=== PATIENT | female | born 1970 | race Caucasian/White ===

== ENCOUNTER 2023-12-13 08:05 | Outpatient (AMB) | payer BC, SELFPAY ==
[2023-12-13 08:10] VITALS: PULSE 114; O2SAT 97; BMI 42.9
--- NOTE | 2023-12-13 08:10 | MHC.PC.OV ---
Vital Signs 12/13/23 08:10 12/13/23 08:41 Height 5 ft 3 in Weight 242 lb BMI 42.9 BP 180/98 H Blood Pressure Location Lt radial Lt brachial Position Sitting Sitting Pulse 114 H Pulse Source Pulse Oximeter Pulse Oximetry (%) 97 Oxygen Delivery Method Room Air Intake Visit Reasons: establish care/ requesting pe Clinical Documentation Specialist Required: No Allergies Seasonal Allergies Allergy (Mild, Verified 12/13/23 08:24) Nasal congestion Medication List - Last Reconciled 12/13/23 by Shanta Medina PA-C No Known Home Meds Tobacco use date assessed: 12/13/23 Dental Screening Dental Screen Date: 12/13/23 Did you have a dental visit in the last 12 months?: No Did you have a dental problem in the last 6 months where you did not have access to dental care?: No HPI establish care/ requesting pe HPI Details 53-year-old female coming to the office for the 1st time. Patient is not known to [facility]. Patient was last seen in [address] Alvarenga at this practice. 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 She has also never had a colonoscopy. She did have her mammogram last month at [facility] and is awaiting the results. She tells us she has a history of high blood pressure and does also have anxiety about her blood pressure being taken. She has a history of a scalp cyst that was removed in 2010 however has returned and is now bothersome. [facility] Medical History (Updated 12/13/23 @ 09:21 by Shanta Medina PA-C) Cervical cancer screening Surgical History (Updated 12/13/23 @ 08:25 by Shanta Medina PA-C) S/P right knee arthroscopy Family History (Updated 12/13/23 @ 08:26 by Shanta Medina PA-C) Mother High blood pressure Father High blood pressure Paternal Grandmother Breast cancer Maternal Uncle Prostate cancer Maternal Grandfather Heart attack Social History Housing: House Patient Tobacco Use Status: Never used Tobacco service: No Current occupational status: employed Cognitive needs: No Hearing needs: No Vision needs: No Female Reproductive History Menstrual History of abnormal pap smear: No Questionnaire PHQ-9 Over the last 2 weeks, how often have you been bothered by any of the following problems? 1. Little interest or pleasure in doing things: not at all 2. Feeling down, depressed, or hopeless: not at all 3. Trouble falling or staying asleep, or sleeping too much: not at all 4. Feeling tired or having little energy: not at all 5. Poor appetite or overeating: not at all 6. Feeling bad about yourself - or that you are a failure or have let yourself or your family down: not at all 7. Trouble concentrating on things, such as reading the newspaper or watching television: not at all 8. Moving or speaking so slowly that other people could have noticed. Or the opposite - being so fidgety or restless that you have been moving around a lot more than usual: not at all 9. Thoughts that you would be better off or of hurting yourself in some way: not at all Total score: 0 Depression Screening Interpretation: Negative Depression Screening Done: Yes 58011 - PHQ-9 Billing: Yes Source: Developed by Drs. Victoriano Marcial, Ying Neff, Torres Watkins and colleagues, with an educational lesley from [employer]. Thrive Questionnaire Date Thrive assessed: 12/13/23 I am a: Patient What is your living situation today?: I have a steady place to live Within the past 12 months, did the food you bought not last and you didn't have the money to get more?: Never true Within the past 12 months, did you worry whether your food would run out before you got money to buy more?: Never true Do you have trouble paying for medicines?: No Do you have trouble getting transportation to medical appointments?: No Do you have trouble paying your heating and electricity bill?: No Do you have trouble taking care of your child, family member or friend?: No Do you have trouble with day-to-day activities such as bathing, preparing meals, shopping, managing finances, etc.?: No Are you currently unemployed and looking for a job?: No Are you interested in more education?: I choose not to answer this question Please select the resources that you would like help with: None Currently or been in a relationship where the following occur: No concerns reported THRIVE Score: 0 AUDIT C Alcohol Use Questionnaire (AUDIT-C) 1. How often do you have a drink containing alcohol?: Monthly or less 2. How many drinks containing alcohol do you have on a typical day when you are drinking?: 1 or 2 3. How often do you have six or more drinks on one occasion?: Never Total Score: 1 ANAY-7 AMB Questionnaire ANAY-7 Date ANAY - 7 assessed: 12/13/23 Feeling nervous, anxious, or on edge: 0 = Not at all Not being able to stop or control worryin = Not at all Worrying too much about different things: 0 = Not at all Trouble relaxin = Not at all Being so restless that it is hard to sit still: 0 = Not at all Becoming easily annoyed or irritable: 0 = Not at all Feeling afraid as if something awful might happen: 0 = Not at all Total ANAY-7 score (0-4 normal; 5-9 mild; 10-14 moderate; 15-21 severe): 0 Source: Developed by Drs. Victoriano Marcial, Ying Neff, Torres Watkins and colleagues, with an educational lesley from [employer]. ANAY-7 Assessment Billing ANAY-7 Assessment Tool: ANAY-7 Assessment 55257 Review of Systems Const Denies body aches, Denies fatigue, Denies fever(s), Denies frequent falls, Denies headache(s) and Denies weakness Eyes Reports no additional complaints and Denies change in vision ENT Denies dizziness and Denies headache(s) Card Denies chest pain, Denies leg edema, Denies lightheadedness and Denies dyspnea Resp Denies cough and Denies dyspnea GI Denies abdominal pain, Denies constipation, Denies dyspepsia, Denies diarrhea, Denies nausea and Denies vomiting Denies urinary frequency, Denies dysuria, Denies urinary hesitancy and Denies urinary urgency Musc Denies back pain and Denies myalgias Skin/Breast Reports system reviewed and no additional complaints, except as documented Neuro Denies dizziness, Denies frequent falls, Denies headache(s) and Denies weakness Psych Reports no additional complaints Endo Denies fatigue Physical exam (Primary Care) Vital Signs: Last Vital Signs Pulse 114 H 12/13/23 08:10 BP 180/98 H 12/13/23 08:41 Pulse Ox 97 12/13/23 08:10 Oxygen Delivery Method Room Air 12/13/23 08:10 BMI result Body Mass Index 42.9 BMI Assessment/Plan discussion: High (Zepbound) BMI High, discussed plan: lifestyle, dietary and physical activity Tobacco/Smoking Status: Tobacco use Status Tobacco use date assessed 12/13/23 12/13/23 08:12 Patient Tobacco Use Status Never used Tobacco 12/13/23 08:19 PHQ-9: PHQ-9 Score PHQ-9: Total score 0 12/13/23 09:25 Depression Screening Interpretation: Negative Thrive Assessment: Date of Thrive Assessment Date Thrive assessed 12/13/23 12/13/23 08:12 Currently or been in a relationship where the following occur: No concerns reported Const General: cooperative, healthy appearing, comfortable and no acute distress Orientation/consciousness: patient oriented x3 HENMT Other: Small, mobile, soft, nontender cyst slightly to the left of midline on the scalp Head: Yes normocephalic Ears: hearing grossly normal bilaterally General nose exam: Normal external nose present Eyes General: appearance normal, both eyes and all related structures Conjunctivae: conjunctivae normal Neck Neck: Yes full ROM and Yes no lymphadenopathy Resp Effort & Inspection: normal respiratory effort Auscultation: clear to auscultation bilaterally, no crackles, no rales, no rhonchi and no wheezes Cardio Rate: regular rate Rhythm: regular rhythm Skin General skin exam: no rashes or lesions noted Neuro General: patient oriented x3 Gait exam (Neuro): Normal gait present Extrem General: Yes normal to inspection, Yes full ROM and No edema Psych Affect: normal affect Attitude: cooperative Insight: Good insight present (Psych) Judgement: Good judgement present (Psych) Coding Level of Care Code New Pt Level 4 (19072) Diagnoses Scalp cyst L72.9 Cervical cancer screening Z12.4 Hypertension I10 Morbid obesity with BMI of 40.0-44.9, adult E66.01; Z68.41 Additional Codes ANAY-7 Assessment Billing - ANAY-7 Assessment Tool: ANAY-7 Assessment 59186 ([id number]) PHQ-9 - 45589 - PHQ-9 Billing: Yes ([id number]) Assessment & Plan Assessment & Plan (1) Scalp cyst: Code(s): L72.9 - Follicular cyst of the skin and subcutaneous tissue, unspecified Category: Medical Plan: Patient has recurrent scalp cyst that is bothersome and will grow and shrink randomly. Referral placed for General surgery. (2) Cervical cancer screening: Code(s): Z12.4 - Encounter for screening for malignant neoplasm of cervix Category: Medical Plan: Referral placed for gynecology. No history of abnormal Pap smears. (3) Hypertension: Code(s): I10 - Essential (primary) hypertension Category: Medical Plan: Blood pressure elevated on the exam and patient has a history of hypertension. Advised patient to take blood pressure at home over the next few weeks and follow up in 1 month for repeat blood pressure check. Avoid salt intake and encourage healthy diet and regular exercise. (4) Morbid obesity with BMI of 40.0-44.9, adult: Code(s): E66.01 - Morbid (severe) obesity due to excess calories; Z68.41 - Body mass index [BMI] 40.0-44.9, adult Category: Medical Plan: Healthy diet and regular exercise is encouraged. Discussed the importance of exercise and diet while on Zepbound to avoid regained the weight after discontinuation of the shots. Discussed side effects of this medication. We will trial this medication for 4 weeks advised patient to have liver function testing done 2 weeks into therapy and follow up in 1 month. Plan This note was constructed using voice recognition software. While every effort has been made to ensure accuracy and support representative, still areas may have been included sometimes these areas may affect the content or meeting of the given symptoms. Total time spent caring for the patient today was 30 minutes. This includes time spent before the visit reviewing the chart, time spent during the visit, and time spent after the visit and documentation. Orders: Orders Comprehensive Met. Panel Today Z00.00 - Encounter for general adult medical examination without abnormal findings Complete Blood Count Auto Diff Today Z00.00 - Encounter for general adult medical examination without abnormal findings Free T4 (Free Thyroxine) Today Z00.00 - Encounter for general adult medical examination without abnormal findings Lipid Panel Today Z00.00 - Encounter for general adult medical examination without abnormal findings TSH reflex Free T4 Today Z00.00 - Encounter for general adult medical examination without abnormal findings Vitamin B12 and Folate Today Z00.00 - Encounter for general adult medical examination without abnormal findings Vitamin D 25-OH (D2 and D3) Today Z00.00 - Encounter for general adult medical examination without abnormal findings Referrals General Surgery Referral L72.9 - Follicular cyst of the skin and subcutaneous tissue, unspecified MANAGER INSTALLATION Referral Z12.4 - Encounter for screening for malignant neoplasm of cervix Gastroenterology Referral Z12.11 - Encounter for screening for malignant neoplasm of colon Medications: New tirzepatide (weight loss) (Zepbound) for 4 weeks 2.5 mg (0.5 mL) subcut QWEEK 2 mL 0RF
[2023-12-13 08:41] VITALS: BP 180/98
== END 2023-12-13 08:52 | disposition home or self-care (01) ==
LOC: HO.HMCH 08:06
PROVIDERS: PCP Internal Medicine
DX: I10 Essential (primary) hypertension (principal); L72.9 Follicular cyst of the skin and subcutaneous tissue, unspecified; E66.01 Morbid (severe) obesity due to excess calories; Z68.41 Body mass index [BMI] 40.0-44.9, adult

== ENCOUNTER → 2023-12-13 08:05 | Outpatient (BNVA) | payer BC, SELFPAY | PROVIDERS: PCP Internal Medicine | DX: L72.9 Follicular cyst of the skin and subcutaneous tissue, unspecified (principal); I10 Essential (primary) hypertension; E66.01 Morbid (severe) obesity due to excess calories; Z68.41 Body mass index [BMI] 40.0-44.9, adult | CPT/HCPCS: 96127 ==

== ENCOUNTER 2023-12-26 11:34 | Outpatient (AMB) | payer BC, SELFPAY ==
--- NOTE | 2023-12-26 11:33 | A.OFFVIS_ITS ---
Vital Signs 3 12/26/23 11:42 Height 5 ft 3 in Weight 248 lb 6 oz BMI 44.0 BP 179/99 H Blood Pressure Location Lt brachial Position Sitting Pulse 109 H Intake Visit Reasons: recurrent left sided scalp cyst Intake Note: Patient is seen in office for evaluation of a recurrent cyst of the left scalp. Pt c/o: had a prior cyst on the same spot in 2010 and it was removed at the time by Dr Elliott, recently has increase/decrease, denies discharge, pain, or other concerns ref Dr Clifford Night Supervisor Required: No Accompanied by: Self / Same As Patient Allergies Seasonal Allergies Allergy (Mild, Verified 12/26/23 11:41) Nasal congestion Medication List - Last Reconciled 12/26/23 by William Cleaning MD tirzepatide (weight loss) (Zepbound) 2.5 mg (0.5 mL) subcut QWEEK HPI Comments Details: 53-year-old female patient presenting for an evaluation of a Pilar cyst located in the scalp to the left of midline. She apparently underwent previous excision of this lesion in 2010 but feels the lesion has returned and is causing discomfort. She reports the lesion occasionally increases in size but then subsequently decreases in size. She denies any bleeding or discharge. She presents today to discuss excision of this recurrent Pilar cyst. [facility] Medical History Cervical cancer screening Surgical History S/P right knee arthroscopy Family History Mother High blood pressure Father High blood pressure Paternal Grandmother Breast cancer Maternal Uncle Prostate cancer Maternal Grandfather Heart attack Social History Housing: House Patient Tobacco Use Status: Never used Tobacco service: No Current occupational status: employed Cognitive needs: No Hearing needs: No Vision needs: No Review of Systems Const All systems reviewed & are unremarkable except as noted in HPI and below Physical Exam Const General: no acute distress Nutritional Appearance: well nourished Orientation/consciousness: patient oriented x3 HEENT Head images: 2 1. 2 cm Pilar cyst with no overlying skin changes appreciated. Resp Effort & Inspection: normal respiratory effort, no audible wheezes, no cough and no respiratory distress Skin Other: Warm, dry, no rash Neuro General: patient oriented x3 Assessment & Plan Assessment & Plan (1) Pilar cyst: Code(s): L72.11 - Pilar cyst Category: Medical Plan Patient requests excision of the Pilar cyst. 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 I recommended excision under local anesthesia and after discussion of the procedure, risks and alternatives, she consents to the surgery. Coding Level of Care Code New Pt Level 4 (32852) Diagnoses Pilar cyst L72.11
[2023-12-26 11:42] VITALS: BP 179/99; PULSE 109; BMI 44.0
== END 2023-12-26 12:05 | disposition home or self-care (01) ==
PROVIDERS: PCP Internal Medicine; Visit Provider Surgery
DX: L72.11 Pilar cyst (principal)
CPT/HCPCS: 99204

== ENCOUNTER → 2023-12-26 11:34 | Outpatient (BNVA) | payer BC, SELFPAY | PROVIDERS: PCP Internal Medicine; Visit Provider Surgery ==

== ENCOUNTER 2024-02-06 10:38 | Outpatient (REF) | payer BC, SELFPAY ==
[2024-02-06 10:53] LABS: MANUAL DIFF FLAG NO
[2024-02-06 11:32] LABS: Basophils Absolute Auto 0.1 X10*3/uL (0.0-0.2); Basophils Percent Auto 0.6 % (0-2); Eosinophils Absolute Auto 0.2 X10*3/uL (0.0-0.4); Eosinophils Percent Auto 2.1 % (0-4); Hematocrit 46.7 % (37.0-47.0); Hemoglobin 14.9 g/dl (12.0-16.0); Imm Gran Abs Auto 0.04 X10*3/uL (0.00-0.03); Imm Gran Pct Auto 0.4 % (0.0-0.4); Lymphocytes Absolute Auto 1.6 X10*3/uL (1.2-4.9); Lymphocytes Percent Auto 13.9 % (20-40); Mean Corpuscular HGB Conc 31.9 g/dl (31.0-35.0); Mean Corpuscular Hemoglobin 26.9 pg (27.0-33.0); Mean Corpuscular Volume 84.4 fL (80.0-98.0); Mean Platelet Volume 10.6 fL (9.4-12.3); Monocytes Absolute Auto 0.7 X10*3/uL (0.1-1.2); Monocytes Percent Auto 6.5 % (2-11); Neutrophils Absolute Auto 8.6 x10*3/uL (2.0-8.3); Neutrophils Percent Auto 76.5 % (45-73); Platelet Count 268 X10*3/uL (160-400); Red Blood Count 5.53 X10*6/uL (4.20-5.50); Red Cell Distribution Width 14.3 % (11.0-16.0); White Blood Count 11.2 X10*3/uL (4.8-10.8)
[2024-02-06 12:23] LABS: Alanine Aminotransferase 31 U/L (0-31); Albumin Level 4.3 g/dL (3.5-5.0); Alkaline Phosphatase 94 U/L (39-117); Anion Gap 12 (12-20); Aspartate Amino Transferase 30 U/L (5-31); Bilirubin Total 0.6 mg/dL (0.0-1.0); Blood Urea Nitrogen 11 mg/dL (9-16); Calcium 9.7 mg/dL (8.4-10.2); Carbon Dioxide 28 mmol/L (22-29); Chloride 105 mmol/L (96-108); Cholesterol 185 mg/dL (<200); Estimated Glomerular Filt Rate > 60; Glucose Random 150 mg/dL (60-115); HDL Cholesterol 39 mg/dL (>40); LDL Cholesterol Calculated 127 mg/dL (<100); Potassium 4.6 mmol/L (3.3-5.1); Sodium 140 mmol/L (135-145); Total Protein 8.3 g/dL (6.5-8.0); Triglycerides 99 mg/dL (<150)
[2024-02-06 12:31] LABS: Free T4 (Free Thyroxine) 1.05 ng/dL (0.71-1.85)
[2024-02-06 12:32] LABS: Folate 6.3 ng/mL (> or = 4.0); Vitamin B12 611 pg/mL (200-900)
[2024-02-11 14:08] LABS: Vitamin D 25-OH, D2 <4 ng/mL; Vitamin D 25-OH, D3 15 ng/mL; Vitamin D 25-OH, Total 15 ng/mL (30-100)
== END 2024-02-06 10:39 | disposition home or self-care (01) ==
LOC: HO.LAB 10:38
DX: Z00.00 Encounter for general adult medical examination without abnormal findings (principal)
CPT/HCPCS: 36415; 80053; 80061; 82306; 82607; 82746; 84439; 84443; 85025

== ENCOUNTER 2024-02-08 09:03 | Outpatient (AMB) | payer BC, SELFPAY ==
--- NOTE | 2024-02-08 09:06 | MHC.PC.OV ---
Vital Signs 02/08/24 09:12 02/08/24 09:30 Height 5 ft 3 in Weight 239 lb 8 oz BMI 42.4 BP 132/90 H 180/98 H Blood Pressure Location Lt brachial Lt brachial Position Sitting Sitting Pulse 114 H Pulse Source Pulse Oximeter Pulse Oximetry (%) 94 Oxygen Delivery Method Room Air Intake Visit Reasons: PE Intake Note: Patient is here today for a physical. Steam Oven Operator Required: No Four Slide Machine Operator: Not Required per policy Accompanied by: Self / Same As Patient Allergies Seasonal Allergies Allergy (Mild, Verified 02/08/24 09:28) Nasal congestion black pepper Adverse Reaction (Intermediate, Uncoded 02/08/24 09:28) Diarrhea Medication List - Last Reconciled 02/08/24 by Shanta Medina PA-C tirzepatide 5 mg (0.5 mL) subcut QWEEK Tobacco use date assessed: 02/08/24 Dental Screening Dental Screen Date: 02/08/24 Did you have a dental visit in the last 12 months?: No Did you have a dental problem in the last 6 months where you did not have access to dental care?: No Was dental information given to patient?: No HPI PE HPI Details 53-year-old female with past medical history of hypertension and obesity last seen 12/2023 coming in for annual exam. Patient was started on Zepbound at her last visit for morbid obesity.?In review of the notes, Patient was seen by General surgery December 2023 for pilar cyst advised excision under local anesthesia. Patient is not up-to-date on her routine Pap smears and was referred to Gynecology her last visit. She is also referred to GI for colonoscopy. She is up-to-date on her mammogram done November 2023 at [facility]. Patient states she is feeling generally well. She has been on the step-down the 2nd dose and has been having a good appetite without any nausea or vomiting has lost 11 lb. She has been cutting out soda and other sweets. She did complete her mammogram and has to schedule an appointment with GI for colonoscopy. [facility] Medical History Cervical cancer screening Surgical History S/P right knee arthroscopy Family History Mother High blood pressure Graves disease IBS (irritable bowel syndrome) Father High blood pressure Paternal Grandmother Breast cancer Maternal Uncle Prostate cancer Maternal Grandmother Heart attack Brother Crohn disease Social History Housing: House Alcohol intake: current Alcohol intake frequency: holidays/special occasions only Patient Tobacco Use Status: Never used Tobacco e-Cigarette/Vaping Use: Never Used Second Hand Smoke Exposure: No service: No Current occupational status: employed Cognitive needs: No Hearing needs: No Vision needs: No Questionnaire PHQ-9 Over the last 2 weeks, how often have you been bothered by any of the following problems? 1. Little interest or pleasure in doing things: not at all 2. Feeling down, depressed, or hopeless: not at all 3. Trouble falling or staying asleep, or sleeping too much: not at all 4. Feeling tired or having little energy: not at all 5. Poor appetite or overeating: not at all 6. Feeling bad about yourself - or that you are a failure or have let yourself or your family down: not at all 7. Trouble concentrating on things, such as reading the newspaper or watching television: not at all 8. Moving or speaking so slowly that other people could have noticed. Or the opposite - being so fidgety or restless that you have been moving around a lot more than usual: not at all 9. Thoughts that you would be better off or of hurting yourself in some way: not at all Total score: 0 Depression Screening Interpretation: Negative Depression Screening Done: Yes Source: Developed by Drs. Victoriano Marcial, Ying Neff, Torres Watkins and colleagues, with an educational lesley from [employer]. Thrive Questionnaire Date Thrive assessed: 02/08/24 I am a: Patient What is your living situation today?: I have a steady place to live Within the past 12 months, did the food you bought not last and you didn't have the money to get more?: Never true Within the past 12 months, did you worry whether your food would run out before you got money to buy more?: Never true Do you have trouble paying for medicines?: No Do you have trouble getting transportation to medical appointments?: No Do you have trouble paying your heating and electricity bill?: No Do you have trouble taking care of your child, family member or friend?: No Do you have trouble with day-to-day activities such as bathing, preparing meals, shopping, managing finances, etc.?: No Are you currently unemployed and looking for a job?: No Are you interested in more education?: No Please select the resources that you would like help with: None Currently or been in a relationship where the following occur: No concerns reported THRIVE Score: 0 AUDIT C Alcohol Use Questionnaire (AUDIT-C) 1. How often do you have a drink containing alcohol?: Monthly or less 2. How many drinks containing alcohol do you have on a typical day when you are drinking?: 1 or 2 3. How often do you have six or more drinks on one occasion?: Never Total Score: 1 ANAY-7 AMB Questionnaire ANAY-7 Date ANAY - 7 assessed: 02/08/24 Feeling nervous, anxious, or on edge: 0 = Not at all Not being able to stop or control worryin = Not at all Worrying too much about different things: 0 = Not at all Trouble relaxin = Several days Being so restless that it is hard to sit still: 0 = Not at all Becoming easily annoyed or irritable: 0 = Not at all Feeling afraid as if something awful might happen: 0 = Not at all Total ANAY-7 score (0-4 normal; 5-9 mild; 10-14 moderate; 15-21 severe): 1 Source: Developed by Drs. Victoriano Marcial, Ying Neff, Torres Watkins and colleagues, with an educational lesley from [employer]. ANAY-7 Assessment Billing ANAY-7 Assessment Tool: ANAY-7 Assessment 92991 Review of Systems Const Denies body aches, Denies fatigue, Denies fever(s), Denies frequent falls, Denies headache(s) and Denies weakness Eyes Reports no additional complaints and Denies change in vision ENT Denies dysphagia, Denies dizziness, Denies facial pain, Denies headache(s), Denies nasal congestion and Denies odynophagia Card Denies chest pain, Denies syncope, Denies irregular heart rhythm, Denies leg edema, Denies lightheadedness and Denies dyspnea Resp Denies cough and Denies dyspnea GI Denies abdominal pain, Denies constipation, Denies dysphagia, Denies dyspepsia, Reports diarrhea (with fatty meals), Denies nausea, Denies odynophagia and Denies vomiting Denies urinary frequency, Denies dysuria, Denies urinary hesitancy and Denies urinary urgency Musc Denies back pain and Denies myalgias Skin/Breast Reports system reviewed and no additional complaints, except as documented Neuro Denies dizziness, Denies syncope, Denies frequent falls, Denies headache(s) and Denies weakness Psych Reports no additional complaints Endo Denies fatigue Physical exam (Primary Care) Vital Signs: Last Vital Signs Pulse 114 H 02/08/24 09:12 BP 180/98 H 02/08/24 09:30 Pulse Ox 94 02/08/24 09:12 Oxygen Delivery Method Room Air 02/08/24 09:12 BMI result Body Mass Index 42.4 Tobacco/Smoking Status: Tobacco use Status Tobacco use date assessed 02/08/24 02/08/24 09:08 Patient Tobacco Use Status Never used Tobacco 02/08/24 09:14 e-Cigarette/Vaping Use Never Used 02/08/24 09:14 PHQ-9: PHQ-9 Score PHQ-9: Total score 0 02/08/24 09:33 Depression Screening Interpretation: Negative Thrive Assessment: Date of Thrive Assessment Date Thrive assessed 02/08/24 02/08/24 09:08 Currently or been in a relationship where the following occur: No concerns reported Const General: cooperative, healthy appearing, comfortable and no acute distress Orientation/consciousness: patient oriented x3 HENMT Head: Yes normocephalic Ears: hearing grossly normal bilaterally, external ears normal, TM's normal bilaterally and EAC's normal General nose exam: Normal external nose present Face and sinus: Yes normal facial exam and Yes sinuses nontender Mouth: Normal oral and palatal mucosa present and tongue normal Throat: Yes posterior oropharynx normal Eyes General: appearance normal, both eyes and all related structures Conjunctivae: conjunctivae normal Pupils: Equal, round and reactive pupils present EOM: EOMs intact bilaterally and No Nystagmus present Neck Neck: Yes normal visual inspection, Yes full ROM and Yes no lymphadenopathy Chest Chest palpation & inspection: normal inspection of the chest Resp Effort & Inspection: normal respiratory effort Auscultation: clear to auscultation bilaterally, no crackles, no rales, no rhonchi, no wheezes and breath sounds present Cardio Rate: regular rate Rhythm: regular rhythm Peripheral pulses: radial pulses present and dorsalis pedis present GI Inspection: Yes normal to inspection and No Abdominal wall edema Palpation (GI): Soft to palpation, not firm and nontender Auscultation: normal bowel sounds Rectal Exam - Female: deferred General: Yes no CVA tenderness Back/Spine/Pelvis Back: no CVA tenderness Skin General skin exam: no rashes or lesions noted Neuro General: patient oriented x3 Cranial nerves: Yes Equal, round and reactive pupils present, Yes Midline tongue present, Yes Ability to bilaterally elevate shoulders present and No Nystagmus present Gait exam (Neuro): Normal gait present Extrem General: Yes normal to inspection, Yes full ROM, No no pedal edema and No edema Psych Speech and movement: Normal speech and movement present Affect: normal affect Insight: Good insight present (Psych) Judgement: Good judgement present (Psych) Results AMB Hemoglobin A1c AMB Hemoglobin A1c 10.4 % Last Edit by VIRAL Hernandez on 02/08/24 09:33 Immunizations tetanus-diphtheria toxoids-Td 2 Lf unit-2 Lf unit/0.5 mL IM suspension Performing Provider: Shanta Medina PA-C [facility] Administered by: Halima John RN on 02/08/24 09:55 Dose Route Admin Location Dispensed Lot Number Expiration Date [facility] Industry Operations Investigator 0.5 mL IM Left Deltoid 0.5 mL [id number] 03/18/24 [address]-5 [employer] VIS Given Date VIS Provided VIS Publication Date 02/08/24 Single Vaccine 20 Eligibility Eligibility Date Funding Source Not [facility] Eligible 02/08/24 State funds Results Reviewed Results Reviewed: Laboratory Last Values Hgb A1c (Clinic) 10.4 % (4.0-6.0) H 02/08/24 09:28 Coding Level of Care Code Est Pt Level 4 (23146) Est Pt Prev Care 40-64y(83212) Diagnoses Morbid obesity with BMI of 40.0-44.9, adult E66.01; Z68.41 Pilar cyst L72.11 Hypertension I10 Annual physical exam Z00.00 Skin tag L91.8 Diabetes type 2 E11.9 Additional Codes ANAY-7 Assessment Billing - ANAY-7 Assessment Tool: ANAY-7 Assessment 21927 ([id number]) Assessment & Plan Assessment & Plan (1) Morbid obesity with BMI of 40.0-44.9, adult: Code(s): E66.01 - Morbid (severe) obesity due to excess calories; Z68.41 - Body mass index [BMI] 40.0-44.9, adult Category: Medical Plan: Healthy diet and regular exercise is encouraged. Currently on Zepbound 5 mg and doing well on this medication. (2) Pilar cyst: Code(s): L72.11 - Pilar cyst Category: Medical Plan: Scheduled to have excision with Dr. Cleaning today under local anesthesia. (3) Hypertension: Code(s): I10 - Essential (primary) hypertension Category: Medical Plan: Continue on current blood pressure medication. Avoid salt intake and encourage healthy diet and regular exercise. We will start on lisinopril 5 mg and advised patient to continue monitoring blood pressures at home and bring log to next appointment. (4) Annual physical exam: Code(s): Z00.00 - Encounter for general adult medical examination without abnormal findings Category: Medical Plan: Patient is not up-to-date on her routine Pap smears and was referred to Gynecology her last visit. She is also referred to GI for colonoscopy. She is up-to-date on her mammogram done November 2023 at [facility]. (5) Skin tag: Code(s): L91.8 - Other hypertrophic disorders of the skin Category: Medical Plan: Patient requesting dermatology referral for skin tags on the face referral placed today. (6) Diabetes type 2: Code(s): E11.9 - Type 2 diabetes mellitus without complications Category: Medical Plan: Patient has new diagnosis of diabetes with A1c 10.8%. She is currently on Zepbound but was unable to get the medication last month and as a result has only been on this medication for 1 month. She would like to avoid insulin at this time and try oral medications and her current injection. Discussed this case with nurse navigators we will reach out to the patient for diabetic and hypertension management. Patient was also provided with diabetic resources today. Decrease the amount of carbohydrates such as pasta, bread, rice, and potatoes and limit the amount of sweets. Although fruits are generally healthy they should be eaten in moderation as they are still high in sugar. Hemoglobin A1c goal of less than 7%. Currently on Zepbound but has only had 1 month of this medication. Increase the dose and we will continue on this medication and also start metformin b.i.d.. Plan This note was constructed using voice recognition software. While every effort has been made to ensure accuracy and deliverer food, still areas may have been included sometimes these areas may affect the content or meeting of the given symptoms. Total time spent caring for the patient today was 30 minutes. This includes time spent before the visit reviewing the chart, time spent during the visit, and time spent after the visit and documentation. Orders: Orders AMB Hemoglobin A1c Today Z13.9 - Encounter for screening, unspecified Td State Immunization Today Z23 - Encounter for immunization Referrals Dermatology Referral L91.8 - Other hypertrophic disorders of the skin Medications: New lisinopril 5 mg PO DAILY 30 tabs 3RF metformin 500 mg PO BID 60 tabs 2RF Refilled tirzepatide 5 mg (0.5 mL) subcut QWEEK 2 mL 0RF
[2024-02-08 09:12] VITALS: BP 132/90; PULSE 114; O2SAT 94; BMI 42.4
[2024-02-08 09:30] VITALS: BP 180/98
== END 2024-02-08 09:58 | disposition home or self-care (01) ==
DX: Z23 Encounter for immunization (principal); Z13.9 Encounter for screening, unspecified

== ENCOUNTER 2024-02-08 13:39 | Outpatient (REF) | payer BC, SELFPAY ==
[2024-02-08 13:39] VITALS: BP 191/87; PULSE 100; RESP 16; TEMP 36.6; O2SAT 98; BMI 42.3
--- NOTE | 2024-02-08 14:18 | P.OP_ITS ---
Operative Note Operative Note Date of Service: 02/08/24 Narrative: Preoperative diagnosis: Pilar cyst left scalp Postoperative diagnosis: Same Procedure: Excision of Pilar cyst left scalp Surgeon: William Cleaning MD Certified Income Tax Preparer: None Anesthesia: Lidocaine 1% plain Indications for procedure: 2 cm Pilar cyst left scalp Operative findings: Fluid-filled Pilar cyst 2 cm diameter Specimen: Pilar cyst left scalp Estimated blood loss: 5 mL Complications: None Procedure details: Patient was brought to the minor surgery suite and placed in a supine position. After assuring informed consent, the patient confirmed the site of surgery in the left scalp. Scalp was prepped with Betadine and draped in a sterile fashion. Local anesthesia was then infiltrated over the cyst. Incision was then made with a 15 blade and carried out through subcutaneous tissue up to the cyst wall. The cyst fluid was drained through the incision. Sharp dissection was then used to dissect the Pilar cyst wall from the surrounding subcutaneous tissue. This was then passed off the table and sent to pathology for further examination. Skin was then closed using interrupted 3-0 Prolene sutures. Bacitracin ointment was then applied. The patient tolerated the procedure well. She was discharged in stable condition.
== END 2024-02-08 13:40 | disposition home or self-care (01) ==
LOC: HO.MS 13:39
PROVIDERS: Visit Provider Surgery
PROC: (CPT 11422; principal; 2024-02-08 14:00)
DX: L72.12 Trichodermal cyst (principal); E11.9 Type 2 diabetes mellitus without complications; I10 Essential (primary) hypertension; L91.8 Other hypertrophic disorders of the skin; E66.01 Morbid (severe) obesity due to excess calories; Z68.41 Body mass index [BMI] 40.0-44.9, adult; Z23 Encounter for immunization
CPT/HCPCS: 11422; 83036; 88304; 90471; 90714; J2003

== ENCOUNTER → 2024-02-08 13:39 | Outpatient (BNV) | payer BC, SELFPAY | PROVIDERS: Visit Provider Surgery | DX: L72.11 Pilar cyst (principal) | CPT/HCPCS: 11422 ==

== ENCOUNTER 2024-02-20 09:21 | Outpatient (AMB) | payer BC, SELFPAY ==
[2024-02-20 09:32] VITALS: BP 183/84; PULSE 92; BMI 41.7
--- NOTE | 2024-02-20 09:32 | MHC.OFFVIS ---
Vital Signs 02/20/24 09:32 Height 5 ft 3 in Weight 235 lb 4 oz BMI 41.7 BP 183/84 H Blood Pressure Location Lt brachial Position Sitting Pulse 92 Intake Visit Reasons: S/P exc. recurrent Lt scalp pilar cyst Intake Note: Patient is seen in office for post op assessment post excision of pilar cyst of the left scalp. Pt c/o: no concerns, sutures removed at visit surgery: 02/08/24 Insurance Sales Manager Required: No Accompanied by: Self / Same As Patient Allergies Seasonal Allergies Allergy (Mild, Verified 02/20/24 09:33) Nasal congestion black pepper Adverse Reaction (Intermediate, Uncoded 02/20/24 09:33) Diarrhea HPI Comments Details: 53-year-old female patient returning 1 week following excision of a Pilar cyst of the left scalp. She tolerated the procedure well. Pathology confirmed a Pilar cyst. [facility] Medical History Cervical cancer screening Surgical History History of excision of lesion (02/08/24) S/P right knee arthroscopy Family History Mother High blood pressure Graves disease IBS (irritable bowel syndrome) Father High blood pressure Paternal Grandmother Breast cancer Maternal Uncle Prostate cancer Maternal Grandmother Heart attack Brother Crohn disease Social History Housing: House Alcohol intake: current Alcohol intake frequency: holidays/special occasions only Patient Tobacco Use Status: Never used Tobacco e-Cigarette/Vaping Use: Never Used Second Hand Smoke Exposure: No service: No Current occupational status: employed Cognitive needs: No Hearing needs: No Vision needs: No Physical Exam Vital Signs: Last Vital Signs Pulse 92 02/20/24 09:32 BP 183/84 H 02/20/24 09:32 BMI result Body Mass Index 41.7 HEENT Other: Scalpel wound in the left scalp is clean, dry, and intact without redness or discharge. Head images: 1. Incision left scalp Assessment & Plan Assessment & Plan (1) Pilar cyst: Code(s): L72.11 - Pilar cyst Category: Medical Plan Patient returns status post excision of a Pilar cyst. Her wounds are clean, dry, and intact. Sutures removed and wounds found to be well healed. She should follow up as needed. Coding Level of Care Code Global (95589) Diagnoses Pilar cyst L72.11
== END 2024-02-20 09:33 | disposition home or self-care (01) ==
PROVIDERS: PCP Internal Medicine; Visit Provider Surgery
DX: L72.11 Pilar cyst (principal)
CPT/HCPCS: 99024

== ENCOUNTER → 2024-02-20 09:21 | Outpatient (BNVA) | payer BC, SELFPAY | PROVIDERS: PCP Internal Medicine; Visit Provider Surgery ==

== ENCOUNTER 2024-04-11 07:50 | Outpatient (AMB) | payer BC, SELFPAY ==
--- OUTSIDE RECORDS SUMMARY | 2024-04-11 07:54 | XMS_ITS | Clinical Summary ---
Author Organization [facility] Address [address] [place] [address] Care Team Providers Care School Supervisor Name Role Phone Unavailable Primary Care Provider Unavailabl e Immunizations Name Administration Dates Next Due Covid-19 MRNA Vaccine - Pfizer 12+ (Purple Cap) 05/24/2020,05/03/2020 Social History Tobacco Use Types Packs/Day Years Used Date Smoking Tobacco: Never Assessed Sex and Gender Information Value Date Recorded Sex Assigned at Not on file Gender Identity Not on file Sexual Orientation Not on file Plan of Treatment Health Maintenance Due Date Last Done Comments Hepatitis C Virus Screening 1970 HIV Screening 04/20/1983 DTaP/Tdap/Td Vaccines (1 - Tdap) 1989 Hepatitis B Vaccines (1 of 3 - 19+ 3-dose series) 1989 Pneumococcal Vaccines 50+ (1 of 1 - PCV) 2020 Zoster (Shingles) Vaccine (1 of 2) 2020 COVID-19 Vaccine (3 - 2023- season) 2023 05/24/2020, 05/03/2020 Influenza Vaccine Discontinued 12/23/2019 Pneumococcal Vaccine: Pediatric (0-5 Years) and At-Risk Patients (6 to 49 Years) Aged Out No longer eligible b ased on patient's age to complete this topic
--- NOTE | 2024-04-11 07:58 | A.OFFPC_ITS ---
Vital Signs 04/11/24 07:59 04/11/24 09:01 Height 5 ft 3 in Weight 216 lb BMI 38.3 BP 140/72 H 122/68 Blood Pressure Location Lt brachial Lt brachial Position Sitting Sitting Pulse 88 Pulse Source Pulse Oximeter Pulse Oximetry (%) 96 Oxygen Delivery Method Room Air Intake Visit Reasons: 2 Month F/U Allergies Seasonal Allergies Allergy (Mild, Verified 04/11/24 08:00) Nasal congestion black pepper Adverse Reaction (Intermediate, Uncoded 04/11/24 08:00) Diarrhea Medication List - Last Reconciled 04/11/24 by Shanta Medina PA-C cholecalciferol (vitamin D3) 25 mcg PO DAILY lisinopril 5 mg PO DAILY metformin 500 mg PO BID tirzepatide (weight loss) (Zepbound) 7.5 mg (0.5 mL) subcut QWEEK Tobacco use date assessed: 02/08/24 Dental Screening Dental Screen Date: 02/08/24 HPI 2 Month F/U HPI Details 53-year-old female with past medical his tory of hypertension and obesity last seen 02/2024 coming in for follow up. At her last visit, Lisinopril 5mg was initiated for blood pressure management. She was also started on metformin continued on step-down for new diagnosis of diabetes. She is managing essential hypertension with lisinopril, reporting stable home readings without symptoms such as swelling or dizziness. Her type 2 diabetes mellitus management involves metformin and Zepbound, with A1c monitoring planned in conjunction with cholesterol testing. She has achieved notable weight loss, losing 19 pounds since January for a total of 34 pounds, and continues to manage her weight actively. Carpal tunnel syndrome symptoms are exacerbated during peak work periods, displaying characteristic hand numbness. The patient is experiencing recurrent eczema with a noted dermatologic condition on her nose, possibly a clogged pore. [facility] Medical History Cervical cancer screening Surgical History History of excision of lesion (02/08/24) S/P right knee arthroscopy Family History Mother High blood pressure Graves disease IBS (irritable bowel syndrome) Father High blood pressure Paternal Grandmother Breast cancer Maternal Uncle Prostate cancer Maternal Grandmother Heart attack Brother Crohn disease Social History Housing: House Alcohol intake: current Alcohol intake frequency: holidays/special occasions only Patient Tobacco Use Status: Never used Tobacco Tobacco use type: Cigarette e-Cigarette/Vaping Use: Never Used Second Hand Smoke Exposure: No service: No Current occupational status: employed Cognitive needs: No Hearing needs: No Vision needs: No Questionnaire PHQ-9 Over the last 2 weeks, how often have you been bothered by any of the following problems? 1. Little interest or pleasure in doing things: not at all 2. Feeling down, depressed, or hopeless: not at all 3. Trouble falling or staying asleep, or sleeping too much: not at all 4. Feeling tired or having little energy: not at all 5. Poor appetite or overeating: not at all 6. Feeling bad about yourself - or that you are a failure or have let yourself or your family down: not at all 7. Trouble concentrating on things, such as reading the newspaper or watching television: not at all 8. Moving or speaking so slowly that other people could have noticed. Or the opposite - being so fidgety or restless that you have been moving around a lot more than usual: not at all 9. Thoughts that you would be better off or of hurting yourself in some way: not at all Total score: 0 Depression Screening Interpretation: Negative Depression Screening Done: Yes Source: Developed by Drs. Victoriano Marcial, Ying Neff, Torres Watkins and colleagues, with an educational lesley from [employer]. Thrive Questionnaire Date Thrive assessed: 02/08/24 I am a: Patient What is your living situation today?: I have a steady place to live Within the past 12 months, did the food you bought not last and you didn't have the money to get more?: Never true Within the past 12 months, did you worry whether your food would run out before you got money to buy more?: Never true Do you have trouble paying for medicines?: No Do you have trouble getting transportation to medical appointments?: No Do you have trouble paying your heating and electricity bill?: No Do you have trouble taking care of your child, family member or friend?: No Do you have trouble with day-to-day activities such as bathing, preparing meals, shopping, managing finances, etc.?: No Are you currently unemployed and looking for a job?: No Are you interested in more education?: No Please select the resources that you would like help with: None Currently or been in a relationship where the following occur: No concerns reported THRIVE Score: 0 AUDIT C Alcohol Use Questionnaire (AUDIT-C) 1. How often do you have a drink containing alcohol?: Monthly or less 2. How many drinks containing alcohol do you have on a typical day when you are drinking?: 1 or 2 3. How often do you have six or more drinks on one occasion?: Never Total Score: 1 ANAY-7 AMB Questionnaire ANAY-7 Date ANAY - 7 assessed: 02/08/24 Feeling nervous, anxious, or on edge: 0 = Not at all Not being able to stop or control worryin = Not at all Worrying too much about different things: 0 = Not at all Trouble relaxin = Not at all Being so restless that it is hard to sit still: 0 = Not at all Becoming easily annoyed or irritable: 0 = Not at all Feeling afraid as if something awful might happen: 0 = Not at all Total ANAY-7 score (0-4 normal; 5-9 mild; 10-14 moderate; 15-21 severe): 0 Source: Developed by Drs. Vitcoriano Marcial, Ying Neff, Torres Watkins and colleagues, with an educational lesley from [employer]. Review of Systems Const Denies body aches, Denies chills, Denies fever(s), Denies headache(s) and Denies poor appetite Eyes Reports no additional complaints ENT Denies dysphagia, Denies dizziness, Denies headache(s) and Denies odynophagia Card Denies chest pain, Denies syncope, Denies edema, Denies irregular heart rhythm, Denies lightheadedness and Denies dyspnea Resp Denies cough and Denies dyspnea GI Denies abdominal pain, Denies constipation, Denies dysphagia, Denies diarrhea, Denies nausea, Denies odynophagia and Denies vomiting Reports no additional complaints Musc Reports no additional complaints and Denies abnormal gait Skin/Breast Reports system reviewed and no additional complaints, except as documented Neuro Denies abnormal gait, Denies dizziness, Denies syncope and Denies headache(s) Psych Reports no additional complaints Physical exam (Primary Care) Vital Signs: Last Vital Signs Pulse 88 04/11/24 07:59 BP 140/72 H 04/11/24 07:59 Pulse Ox 96 04/11/24 07:59 Oxygen Delivery Method Room Air 04/11/24 07:59 BMI result Body Mass Index 38.3 Tobacco/Smoking Status: Tobacco use Status Tobacco use date assessed 02/08/24 04/11/24 07:59 Patient Tobacco Use Status Never used Tobacco 04/11/24 07:59 Tobacco use type Cigarette 04/11/24 08:01 e-Cigarette/Vaping Use Never Used 04/11/24 07:59 PHQ-9: PHQ-9 Score PHQ-9: Total score 0 04/11/24 08:12 Depression Screening Interpretation: Negative Thrive Assessment: Date of Thrive Assessment Date Thrive assessed 02/08/24 04/11/24 07:59 Currently or been in a relationship where the following occur: No concerns reported Const General: cooperative, healthy appearing, comfortable and no acute distress Orientation/consciousness: patient oriented x3 HENMT Head: Yes normocephalic Ears: hearing grossly normal bilaterally General nose exam: Normal external nose present Eyes General: appearance normal, both eyes and all related structures Conjunctivae: conjunctivae normal Neck Neck: Yes full ROM and Yes no lymphadenopathy Resp Effort & Inspection: normal respiratory effort Auscultation: clear to auscultation bilaterally, no crackles, no rales, no rhonchi and no wheezes Cardio Rate: regular rate Rhythm: regular rhythm Skin General skin exam: no rashes or lesions noted Neuro General: patient oriented x3 Gait exam (Neuro): Normal gait present Extrem Other: Patient neurovascularly intact in bilateral upper extremities General: Yes normal to inspection, Yes full ROM and No edema Psych Affect: normal affect Attitude: cooperative Insight: Good insight present (Psych) Judgement: Good judgement present (Psych) Coding Level of Care Code Est Pt Level 3 (83721) Diagnoses Diabetes type 2 E11.9 Morbid obesity with BMI of 40.0-44.9, adult E66.01; Z68.41 Hypertension I10 Ingrown toenail L60.0 Eczema L30.9 Bilateral hand numbness R20.0 Assessment & Plan Assessment & Plan (1) Diabetes type 2: Code(s): E11.9 - Type 2 diabetes mellitus without complications Category: Medical Plan: Decrease the amount of carbohydrates such as pasta, bread, rice, and potatoes and limit the amount of sweets. Although fruits are generally healthy they should be eaten in moderation as they are still high in sugar. Hemoglobin A1c goal of less than 7%. Last A1c 10.4% in the clinic at this time patient is not due for A1c. And to repeat A1c in 1 month and follow up in 4 months. If A1c continues to be elevated plan to increase set bound or change to other GLP 1 and/or increase metformin (2) Morbid obesity with BMI of 40.0-44.9, adult: Code(s): E66.01 - Morbid (severe) obesity due to excess calories; Z68.41 - Body mass index [BMI] 40.0-44.9, adult Category: Medical Plan: Healthy diet and regular exercise is encouraged. (3) Hypertension: Code(s): I10 - Essential (primary) hypertension Category: Medical Plan: Continue on current blood pressure medication. Avoid salt intake and encourage healthy diet and regular exercise. Blood pressures have been well managed at home (4) Ingrown toenail: Code(s): L60.0 - Ingrowing nail Category: Medical Plan: Additionally, I have recommended a referral to a linotype machinist to address diabetic foot care, especially regarding the emergent ingrown toenail. (5) Eczema: Code(s): L30.9 - Dermatitis, unspecified Category: Medical Plan: Eczema will be managed with a switch to barrier emollients, supported by topical steroids as needed. (6) Bilateral hand numbness: Code(s): R20.0 - Anesthesia of skin Category: Medical Plan: Symptoms consistent with carpal tunnel. Carpal tunnel syndrome will be managed conservatively using wrist splints, with additional intervention contingent on symptom escalation. Plan This note was constructed using voice recognition software. While every effort has been made to ensure accuracy and edger saw operator, still areas may have been included sometimes these areas may affect the content or meeting of the given symptoms. Total time spent caring for the patient today was 20 minutes. This includes time spent before the visit reviewing the chart, time spent during the visit, and time spent after the visit and documentation. Patient was informed and verbally consented to the use of an ambient scribe for clinic note documentation during this visit. Orders: Orders Lipid Panel Today E78.00 - Pure hypercholesterolemia, unspecified Hemoglobin A1c Today E11.65 - Type 2 diabetes mellitus with hyperglycemia Referrals Podiatry Referral E11.9 - Type 2 diabetes mellitus without complications, L60.0 - Ingrowing nail Medications: New triamcinolone acetonide 0.1% 1 appl topical DAILY 60 mL 0RF
[2024-04-11 07:59] VITALS: BP 140/72; PULSE 88; O2SAT 96; BMI 38.3
[2024-04-11 09:01] VITALS: BP 122/68
== END 2024-04-11 08:44 | disposition home or self-care (01) ==
DX: E11.620 Type 2 diabetes mellitus with diabetic dermatitis (principal); E66.01 Morbid (severe) obesity due to excess calories; Z68.41 Body mass index [BMI] 40.0-44.9, adult; I10 Essential (primary) hypertension; L60.0 Ingrowing nail; L30.9 Dermatitis, unspecified; R20.0 Anesthesia of skin

== ENCOUNTER 2024-05-25 10:34 | Outpatient (REF) | payer BC, SELFPAY ==
[2024-05-25 11:13] LABS: Estimated Average Glucose 111 mg/dL; Hemoglobin A1C 130.3328 umol/L; Hemoglobin A1c % 5.5 % (<6.0)
[2024-05-25 11:34] LABS: Cholesterol 156 mg/dL (<200); HDL Cholesterol 39 mg/dL (>40); LDL Cholesterol Calculated 102 mg/dL (<100); Triglycerides 76 mg/dL (<150)
== END 2024-05-25 10:35 | disposition home or self-care (01) ==
LOC: HO.LAB 10:34
DX: E11.65 Type 2 diabetes mellitus with hyperglycemia (principal); E78.00 Pure hypercholesterolemia, unspecified
CPT/HCPCS: 36415; 80061; 83036

== ENCOUNTER 2024-06-17 09:34 | Outpatient (AMB) | payer BC, SELFPAY ==
--- OUTSIDE RECORDS SUMMARY | 2024-06-17 09:52 | XMS_ITS | Clinical Summary ---
Author Organization [facility] Address [address] [place] [address] Care Team Providers Care Ethanol Operations Manager Name Role Phone Unavailable Primary Care Provider Unavailabl e Immunizations Immunization Administration Dates Next Due Covid-19 MRNA Vaccine - Pfizer 12+ (Purple Cap) 05/24/2020,05/03/2020 Social History Tobacco Use Types Packs/Day Years Used Date Smoking Tobacco: Never Assessed Comments Unknown Sex and Gender Information Value Date Recorded Sex Assigned at Not on file Legal Sex Female 11:59 AM EDT Gender Identity Not on file Sexual Orientation [...] of 2) 2020 COVID-19 Vaccine (3 - season) 2023, 05/03/2020 Influenza Vaccine Discontinued 12/23/2019
--- NOTE | 2024-06-17 09:55 | A.OFFPC_ITS ---
Vital Signs 06/17/24 09:56 Height 5 ft 3 in Weight 201 lb 4 oz BMI 35.6 BP 120/80 Blood Pressure Location Lt brachial Position Sitting Pulse 77 Pulse Source Pulse Oximeter Temp 97.1 F Temp Source Temporal Artery Scan Pulse Oximetry (%) 98 Oxygen Delivery Method Room Air Intake Visit Reasons: Weight check Intake Note: Patient is here to follow up on Weight check. Barn Operator Required: No Safe Deposit Box Rental Clerk: Not Required per policy Accompanied by: Self / Same As Patient Allergies Seasonal Allergies Allergy (Mild, Verified 06/17/24 10:11) Nasal congestion black pepper Adverse Reaction (Intermediate, Uncoded 06/17/24 10:11) Diarrhea Medication List - Last Reconciled 06/17/24 by Shanta Medina PA-C cholecalciferol (vitamin D3) 25 mcg PO DAILY lisinopril 5 mg PO DAILY metformin 500 mg PO BID tirzepatide (weight loss) (Zepbound) 10 mg (0.5 mL) subcut QWEEK triamcinolone acetonide 0.1% 1 appl topical DAILY Tobacco use date assessed: 06/17/24 Dental Screening Dental Screen Date: 02/08/24 HPI Weight check HPI Details 53-year-old female with past medical his tory of hypertension and obesity last seen 04/2024 coming in for follow up. Presenting with a follow-up for the management of Type 2 Diabetes Mellitus. Zepbound was prescribed initially before confirming diabetes, yet her Hemoglobin A1c now reads 5.5%, suggesting excellent control. A significant weight loss of 47 pounds has occurred since December, from a previous weight of 248 pounds. Minimal recent weight gain is noted, but overall loss remains significant. She denies major issues with Zepbound outside minor GI symptoms, managed by dietary measures, and adequate hydration. Home blood pressure monitoring shows readings at 117/67. Patient has also been exercising regularly to maintain her weight loss. [facility] Medical History Cervical cancer screening Surgical History History of excision of lesion (02/08/24) S/P right knee arthroscopy Family History Mother High blood pressure Graves disease IBS (irritable bowel syndrome) Father High blood pressure Paternal Grandmother Breast cancer Maternal Uncle Prostate cancer Maternal Grandmother Heart attack Brother Crohn disease Social History Housing: House Alcohol intake: current Alcohol intake frequency: holidays/special occasions only Patient Tobacco Use Status: Never used Tobacco Tobacco use type: Cigarette e-Cigarette/Vaping Use: Never Used Second Hand Smoke Exposure: No service: No Current occupational status: employed Cognitive needs: No Hearing needs: No Vision needs: No Questionnaire Thrive Questionnaire Date Thrive assessed: 02/08/24 I am a: Patient What is your living situation today?: I have a steady place to live Within the past 12 months, did the food you bought not last and you didn't have the money to get more?: Never true Within the past 12 months, did you worry whether your food would run out before you got money to buy more?: Never true Do you have trouble paying for medicines?: No Do you have trouble getting transportation to medical appointments?: No Do you have trouble paying your heating and electricity bill?: No Do you have trouble taking care of your child, family member or friend?: No Do you have trouble with day-to-day activities such as bathing, preparing meals, shopping, managing finances, etc.?: No Are you currently unemployed and looking for a job?: No Are you interested in more education?: No Please select the resources that you would like help with: None Currently or been in a relationship where the following occur: No concerns reported THRIVE Score: 0 ANAY-7 AMB Questionnaire ANAY-7 Date ANAY - 7 assessed: 02/08/24 Source: Developed by Drs. Victoriano Marcial, Ying Neff, Torres Watkins and colleagues, with an educational lesley from [employer]. Review of Systems Const Denies body aches, Denies chills, Denies fever(s), Denies headache(s) and Denies poor appetite Eyes Reports no additional complaints ENT Denies dysphagia, Denies dizziness, Denies headache(s) and Denies odynophagia Card Denies chest pain, Denies syncope, Denies edema, Denies irregular heart rhythm, Denies lightheadedness and Denies dyspnea Resp Denies cough and Denies dyspnea GI Denies abdominal pain, Denies constipation, Denies dysphagia, Denies diarrhea, Denies nausea, Denies odynophagia and Denies vomiting Reports no additional complaints Musc Reports no additional complaints and Denies abnormal gait Skin/Breast Reports system reviewed and no additional complaints, except as documented Neuro Denies abnormal gait, Denies dizziness, Denies syncope and Denies headache(s) Psych Reports no additional complaints Physical exam (Primary Care) Vital Signs: Last Vital Signs Temp 97.1 F 06/17/24 09:56 Pulse 77 06/17/24 09:56 BP 120/80 06/17/24 09:56 Pulse Ox 98 06/17/24 09:56 Oxygen Delivery Method Room Air 06/17/24 09:56 BMI result Body Mass Index 35.6 Tobacco/Smoking Status: Tobacco use Status Tobacco use date assessed 06/17/24 06/17/24 10:00 Patient Tobacco Use Status Never used Tobacco 06/17/24 10:00 Tobacco use type Cigarette 06/17/24 10:00 e-Cigarette/Vaping Use Never Used 06/17/24 10:00 Thrive Assessment: Date of Thrive Assessment Date Thrive assessed 02/08/24 06/17/24 10:00 Currently or been in a relationship where the following occur: No concerns reported Const General: cooperative, healthy appearing, comfortable and no acute distress Orientation/consciousness: patient oriented x3 HENMT Head: Yes normocephalic Ears: hearing grossly normal bilaterally General nose exam: Normal external nose present Eyes General: appearance normal, both eyes and all related structures Conjunctivae: conjunctivae normal Neck Neck: Yes full ROM and Yes no lymphadenopathy Resp Effort & Inspection: normal respiratory effort Auscultation: clear to auscultation bilaterally, no crackles, no rales, no rhonchi and no wheezes Cardio Rate: regular rate Rhythm: regular rhythm Skin General skin exam: no rashes or lesions noted Neuro General: patient oriented x3 Gait exam (Neuro): Normal gait present Extrem General: Yes normal to inspection, Yes full ROM and No edema Psych Affect: normal affect Attitude: cooperative Insight: Good insight present (Psych) Judgement: Good judgement present (Psych) Coding Level of Care Code Est Pt Level 4 (75262) Diagnoses Diabetes type 2 E11.9 Morbid obesity with BMI of 40.0-44.9, adult E66.01; Z68.41 Hypertension I10 Hypercholesterolemia E78.00 Bilateral knee pain M25.561; M25.562 Assessment & Plan Assessment & Plan (1) Diabetes type 2: Code(s): E11.9 - Type 2 diabetes mellitus without complications Category: Medical Plan: Decrease the amount of carbohydrates such as pasta, bread, rice, and potatoes and limit the amount of sweets. Although fruits are generally healthy they should be eaten in moderation as they are still high in sugar. Hemoglobin A1c goal of less than 7%. Last A1c 5.5%. Plan to discontinue the Metformin at this time and continue on the Zepbound. (2) Morbid obesity with BMI of 40.0-44.9, adult: Code(s): E66.01 - Morbid (severe) obesity due to excess calories; Z68.41 - Body mass index [BMI] 40.0-44.9, adult Category: Medical Plan: Healthy diet and regular exercise is encouraged. Noted 15 lb weight loss since last visit while on the Zepbound and 47 lbs since starting the medication. Plan to increase further to 12.5 mg. (3) Hypertension: Code(s): I10 - Essential (primary) hypertension Category: Medical Plan: Continue on current blood pressure medication. Avoid salt intake and encourage healthy diet and regular exercise. Blood pressures have been well managed at home in the 110/60 range. Plan to decrease lisinopril to 2.5 mg advised patient to continue to monitor blood pressure at home and if exceeds 140/90 to reach out to the office. (4) Hypercholesterolemia: Code(s): E78.00 - Pure hypercholesterolemia, unspecified Category: Medical Plan: Avoid foods that are high in cholesterol such as red meat, fried foods, eggs and baked goods. Triglyceride goal of less than 150 and LDL goal of less than 100. LDL mildly elevated on last blood work plan to continue with dietary and lifestyle modification. (5) Bilateral knee pain: Code(s): M25.561 - Pain in right knee; M25.562 - Pain in left knee Category: Medical Plan: Patient having bilateral knee pain on occasion requesting something stronger than ibuprofen and Tylenol. Plan to send meloxicam 15 mg to be used as needed. Can consider x-ray or orthopedics for further evaluation Plan This note was constructed using voice recognition software. While every effort has been made to ensure accuracy and personnel arbitrator, still areas may have been included sometimes these areas may affect the content or meeting of the given symptoms. Total time spent caring for the patient today was 20 minutes. This includes time spent before the visit reviewing the chart, time spent during the visit, and time spent after the visit and documentation. Patient was informed and verbally consented to the use of an ambient scribe for clinic note documentation during this visit. Medications: New meloxicam 15 mg PO DAILY 30 tabs 0RF tirzepatide (weight loss) (Zepbound) 12.5 mg (0.5 mL) subcut QWEEK 2 mL 0RF lisinopril 2.5 mg PO DAILY 30 tabs 1RF Discontinued tirzepatide (weight loss) (Zepbound) Discontinued Reason: Patient no longer taking 10 mg (0.5 mL) subcut QWEEK 2 mL 0RF lisinopril Discontinued Reason: Patient no longer taking 5 mg PO DAILY 30 tabs 3RF metformin Discontinued Reason: Patient no longer taking 500 mg PO BID 60 tabs 2RF
[2024-06-17 09:56] VITALS: BP 120/80; PULSE 77; TEMP 36.2; O2SAT 98; BMI 35.6
== END 2024-06-17 10:29 | disposition home or self-care (01) ==
LOC: HO.HMCH 09:34
DX: E11.9 Type 2 diabetes mellitus without complications (principal); E66.01 Morbid (severe) obesity due to excess calories; Z68.41 Body mass index [BMI] 40.0-44.9, adult; I10 Essential (primary) hypertension; E78.00 Pure hypercholesterolemia, unspecified; M25.561 Pain in right knee; M25.562 Pain in left knee

== ENCOUNTER → 2024-06-17 09:34 | Outpatient (BNVA) | payer BC, SELFPAY | DX: Z13.89 Encounter for screening for other disorder (principal) ==

== ENCOUNTER 2024-09-06 08:42 | Outpatient (AMB) | payer BC, SELFPAY ==
--- NOTE | 2024-09-06 08:51 | MHC.PC.OV ---
Vital Signs 09/06/24 08:52 Height 5 ft 3 in Weight 187 lb BMI 33.1 BP 122/66 Blood Pressure Location Lt brachial Position Sitting Pulse 77 Pulse Source Pulse Oximeter Temp 97.4 F Temp Source Temporal Artery Scan Pulse Oximetry (%) 98 Oxygen Delivery Method Room Air Intake Visit Reasons: 4 Month F/U Shredding Machine Tender Required: No Accompanied by: Self / Same As Patient Allergies Seasonal Allergies Allergy (Mild, Verified 09/06/24 08:56) Nasal congestion black pepper Adverse Reaction (Intermediate, Uncoded 09/06/24 08:56) Diarrhea Medication List - Last Reconciled 09/06/24 by Shanta Medina PA-C cholecalciferol (vitamin D3) 25 mcg PO DAILY lisinopril 2.5 mg PO DAILY meloxicam 15 mg PO DAILY tirzepatide (weight loss) (Zepbound) 15 mg (0.5 mL) subcut QWEEK triamcinolone acetonide 0.1% 1 appl topical DAILY Tobacco use date assessed: 09/06/24 Dental Screening Dental Screen Date: 09/06/24 Did you have a dental visit in the last 12 months?: No Did you have a dental problem in the last 6 months where you did not have access to dental care?: No Was dental information given to patient?: No HPI 4 Month F/U HPI Details 53-year-old female with past medical history of hypertension and obesity last seen 06/2024 coming in for follow up.? Presenting with management of chronic conditions. Previously on metformin, discontinued due to improved A1c levels at 5.5%. Blood pressure well-controlled, leading to discontinuation of lisinopril. On Zepbound 15 mg for weight management and DM, resulting in a weight loss of 65.2 pounds since January 06. [facility] Medical History Cervical cancer screening Surgical History History of excision of lesion (02/08/24) S/P right knee arthroscopy Family History Mother High blood pressure Graves disease IBS (irritable bowel syndrome) Father High blood pressure Paternal Grandmother Breast cancer Maternal Uncle Prostate cancer Maternal Grandmother Heart attack Brother Crohn disease Social History Housing: House Alcohol intake: current Alcohol intake frequency: holidays/special occasions only Patient Tobacco Use Status: Never used Tobacco Tobacco use type: Cigarette e-Cigarette/Vaping Use: Never Used Second Hand Smoke Exposure: No service: No Current occupational status: employed Cognitive needs: No Hearing needs: No Vision needs: No Questionnaire Thrive Questionnaire Date Thrive assessed: 09/06/24 ANAY-7 AMB Questionnaire ANAY-7 Date ANAY - 7 assessed: 09/06/24 Source: Developed by Drs. Victoriano Marcial, Ying Neff, Torres Watkins and colleagues, with an educational lesley from [employer]. Review of Systems Const Denies body aches, Denies chills, Denies fever(s), Denies headache(s) and Denies poor appetite Eyes Reports no additional complaints ENT Denies dizziness and Denies headache(s) Card Denies chest pain, Denies lightheadedness and Denies dyspnea Resp Denies dyspnea GI Denies abdominal pain, Denies nausea and Denies vomiting Reports no additional complaints Musc Reports no additional complaints and Denies abnormal gait Skin/Breast Reports system reviewed and no additional complaints, except as documented Neuro Denies abnormal gait, Denies dizziness and Denies headache(s) Psych Reports no additional complaints Physical exam (Primary Care) Vital Signs: Last Vital Signs Temp 97.4 F 09/06/24 08:52 Pulse 77 09/06/24 08:52 BP 122/66 09/06/24 08:52 Pulse Ox 98 09/06/24 08:52 Oxygen Delivery Method Room Air 09/06/24 08:52 BMI result Body Mass Index 33.1 Tobacco/Smoking Status: Tobacco use Status Tobacco use date assessed 09/06/24 09/06/24 08:56 Patient Tobacco Use Status Never used Tobacco 09/06/24 08:56 Tobacco use type Cigarette 09/06/24 08:56 e-Cigarette/Vaping Use Never Used 09/06/24 08:56 Thrive Assessment: Date of Thrive Assessment Date Thrive assessed 09/06/24 09/06/24 08:56 Const General: cooperative, healthy appearing, comfortable and no acute distress Orientation/consciousness: patient oriented x3 HENMT Head: Yes normocephalic Ears: hearing grossly normal bilaterally General nose exam: Normal external nose present Eyes General: appearance normal, both eyes and all related structures Conjunctivae: conjunctivae normal Neck Neck: Yes full ROM and Yes no lymphadenopathy Resp Effort & Inspection: normal respiratory effort Auscultation: clear to auscultation bilaterally, no crackles, no rales, no rhonchi and no wheezes Cardio Rate: regular rate Rhythm: regular rhythm Skin General skin exam: no rashes or lesions noted Neuro General: patient oriented x3 Gait exam (Neuro): Normal gait present Extrem General: Yes normal to inspection, Yes full ROM and No edema Psych Affect: normal affect Attitude: cooperative Insight: Good insight present (Psych) Judgement: Good judgement present (Psych) Results AMB Hemoglobin A1c AMB Hemoglobin A1c 5.0 % Last Edit by Meghan Lange MA on 09/06/24 09:13 Results Reviewed Results Reviewed: Laboratory Last Values Hgb A1c (Clinic) 5.0 % (4.0-6.0) 09/06/24 09:11 Coding Level of Care Code Est Pt Level 3 (40213) Diagnoses Primary hypertension I10 Hypertension type: primary hypertension Hypercholesterolemia E78.00 Diabetes type 2 E11.9 Morbid obesity with BMI of 40.0-44.9, adult E66.01; Z68.41 Bilateral knee pain M25.561; M25.562 Assessment & Plan Assessment & Plan (1) Hypertension: Code(s): I10 - Essential (primary) hypertension Category: Medical Qualifiers: Hypertension type: primary hypertension Qualified Code(s): I10 - Essential (primary) hypertension Plan: Plan to discontinue the Lisinopril as blood pressures in the office and at home have been WNL. Avoid salt intake and encourage healthy diet and regular exercise. (2) Hypercholesterolemia: Code(s): E78.00 - Pure hypercholesterolemia, unspecified Category: Medical Plan: Avoid foods that are high in cholesterol such as red meat, fried foods, eggs and baked goods. Triglyceride goal of less than 150 and LDL goal of less than 100. Last LDL within her goal (3) Diabetes type 2: Code(s): E11.9 - Type 2 diabetes mellitus without complications Category: Medical Plan: Decrease the amount of carbohydrates such as pasta, bread, rice, and potatoes and limit the amount of sweets. Although fruits are generally healthy they should be eaten in moderation as they are still high in sugar. Hemoglobin A1c goal of less than 7%. A1c in the clinic at goal continue on Zepbound (4) Morbid obesity with BMI of 40.0-44.9, adult: Code(s): E66.01 - Morbid (severe) obesity due to excess calories; Z68.41 - Body mass index [BMI] 40.0-44.9, adult Category: Medical Plan: Healthy diet and regular exercise is encouraged. Patient has lost 65 lbs since starting Zepbound and 14 lbs in the last 3 months. Plan to continue on Zepbound 15mg at this time. (5) Bilateral knee pain: Code(s): M25.561 - Pain in right knee; M25.562 - Pain in left knee Category: Medical Plan: Continue with Meloxicam prn for pain. Plan The plan includes continuing the current regimen of Zepbound 15 mg for weight management, given the significant weight loss achieved. The patient will maintain her current diet and exercise routine to support ongoing weight management and overall health improvement. Lisinopril has been discontinued due to well-controlled blood pressure, and the patient will continue to monitor her blood pressure regularly at home. The patient is advised to take meloxicam as needed for arthritis pain, with an emphasis on understanding its role in managing arthritis symptoms. The patient will continue to monitor her blood glucose levels. Follow-up appointments will be scheduled to reassess the patient's condition and adjust the treatment plan as necessary. This note was constructed using voice recognition software. While every effort has been made to ensure accuracy and security site supervisor, still areas may have been included sometimes these areas may affect the content or meeting of the given symptoms. Total time spent caring for the patient today was 20 minutes. This includes time spent before the visit reviewing the chart, time spent during the visit, and time spent after the visit and documentation. Patient was informed and verbally consented to the use of an ambient scribe for clinic note documentation during this visit. Orders: Orders AMB Hemoglobin A1c Today E11.9 - Type 2 diabetes mellitus without complications Medications: Discontinued lisinopril Discontinued Reason: Patient no longer taking 2.5 mg PO DAILY 90 tabs 0RF triamcinolone acetonide 0.1% Discontinued Reason: Patient Completed Course 1 appl topical DAILY 60 mL 0RF
[2024-09-06 08:52] VITALS: BP 122/66; PULSE 77; TEMP 36.3; O2SAT 98; BMI 33.1
--- OUTSIDE RECORDS SUMMARY | 2024-09-06 08:54 | XMS_ITS | Clinical Summary ---
Author Organization [facility] Address [address] [place] [address] Care Team Providers Care Family Practice Doctor Name Role Phone Unavailable Primary Care Provider [...]
--- OUTSIDE RECORDS SUMMARY | 2024-09-06 08:55 | XMS_ITS | Patient Health Record ---
Author Organization [facility] Tanner Luceroley Address [address] [place] [address] Care Team Providers Care Bioinformatics Assistant Name Role Phone Adam Shanta Primary Care Provider Unavailab Katie Tran Unavailable [phone] Allergies Allergen (clinical drug ingredient) Drug/Non Drug Allergy documented on EMR Reaction Allergy Type Onset Date Status Black pepper Black Pepper (uncoded) Unknown Allergy Active Seasonal (uncoded) Unknown Allergy A ctive Results Component Value Reference Range Notes HEMOGLOBIN A1C (GLYCOHEMOGLO BIN) Reviewed date:07/04/2024 08:36:04 AM Interpretation: Performing Lab: Notes/Report: HEMOGLOBIN A1C % (HH) 5.5 Reason For Referral Diagnosis 1 Pain in unspecified foot (M79.673) Referring Provider First Name Shanta Referring Provider Last Name Adam [facility] Referred Provider Katie Cast Referred Address [address] [facility] [place],[address], Referred Provider Specialty Podiatry Referral Priority Routine Medications Medication SIG (Take, Route, Frequency, Duration) Notes Start Date End Date Status Frieda Active Triamcinolone Acetonide 0.1 % 1 application Externally Twice a day Active Vitamin D3 25 MCG (1000 UT) 1 capsule Or ally Once a day Active Lisinopril 2.5 MG 1 tablet Orally Once a day Active Zepbound 10 MG/0.5ML 0.5 mL Subcutaneous Active Social History Tobacco Use: Social History Observation Description Date Details (start date - stop date) Never Smoker NA - NA Tobacco use other than smoking: Question Answer Notes Are you an other tobacco user? No Tobacco Control (Standard) Question Answer Notes Tobacco use: Nonsmoker Additional Findings: Tobacco non-user Current no nsmoker Problems Problem Type SNOMED Code ICD Code Onset Dates Problem Status W/U Status Risk Notes Problem Acquired hammer toe of right foot (696597134429218 5) Other hammer toe(s) (acquired), right foot (M20.41) Active confirmed Problem Acquired hammer toe of left foot (427109306243001 3) Other hammer toe(s) (acquired), left foot (M20.42) Active confirmed Problem Type II diabetes mellitus without complication (939308119) Type 2 diabetes mellitus without complication (E11.9) Active confirmed Vital Signs Blood pressure diastolic 65 mm Hg 07/04/2024 Height 5 ft 3 in in 07/04/2024 Blood pressure systolic 130 mm Hg 07/04/2024 Weight 199 lbs 07/04/2024 BMI 35.25 kg/m2 07/04/2024 Procedures Procedure Date Ordered Date Performed Result Body Sit e 82165-MIYQFKL NAIL, 6 OR MORE 07/04/2024 N/A Encounters Encounter Location Date Provider Diagnosis [facility] [place] [address] [place] [address] 07/04/2024 Katie Cast Pain in right toe(s) M79.674 ; Tinea unguium B35.1 ; Pain in left toe(s) M79.675 ; Type 2 diabetes mellitus without complication E11.9 ; Other hammer toe(s) (acquired), right foot M20.41 and Other hammer toe(s) (acquired), left foot M20.42 Assessments Encounter Date Diagnosis (ICD Code) Assessment Notes Treatment Notes Treatment Clinical Notes Section Notes 07/04/2024 Pain in right toe(s) (ICD-10 - M79.674) 07/04/2024 Tinea unguium (ICD-10 - B35.1) 07/04/2024 Pain in left toe(s) (ICD-10 - M79.675) 07/04/2024 Type 2 diabetes mellitus without complication (ICD-10 - E11.9) 07/04/2024 Other hammer toe(s) (acquired), right foot (ICD-10 - M20.41) Patient Educated with: DIABETIC FOOT CARE INSTRUCTIONS.p df (DIABETIC FOOT CARE INSTRUCTIONS.p df) 07/04/2024 Other hammer toe(s) (acquired), left foot (ICD-10 - M20.42) Plan Of Treatment Pending Test Test Name Order Date [id number] NAIL, 6 OR MORE 07/04/2024 Next Appt Details Provider Name:Katie Sutton angela, 07/04/2025 09:00:00 AM, [address] [facility], [address], [place], [address], Insurance Providers Payer Name Payer Address Payer Phone Subscriber Number Group Number Insured Name Patient Relationship to Insured Coverage Start Date Coverage End Date [facility] [address] [place] [address] [phone] [id number] Veena Perez Self - patient is the insured Medical (General) History Medical History History ICD Code Anemia Back,Hip,and Knee pain type II diabetes High Blood Pressure Psoriasis/eczema Chicken pox Joint implants/screws Seasonal allergies Surgical History Surgery Date(Month/Year) knee re-alignment 2000 arthroscopic knee surgery 1999 Meniscus debridement 2018 excision of cyst on scalp 2x 2024
== END 2024-09-06 09:16 | disposition home or self-care (01) ==
LOC: HO.HMCH 08:42
DX: E11.9 Type 2 diabetes mellitus without complications (principal); E66.01 Morbid (severe) obesity due to excess calories; Z68.41 Body mass index [BMI] 40.0-44.9, adult; I10 Essential (primary) hypertension; E78.00 Pure hypercholesterolemia, unspecified; M25.561 Pain in right knee; M25.562 Pain in left knee

== ENCOUNTER → 2024-09-06 08:42 | Outpatient (BNVA) | payer BC, SELFPAY | DX: I10 Essential (primary) hypertension (principal); E78.00 Pure hypercholesterolemia, unspecified; E11.9 Type 2 diabetes mellitus without complications; E66.01 Morbid (severe) obesity due to excess calories; Z68.41 Body mass index [BMI] 40.0-44.9, adult; M25.561 Pain in right knee; M25.562 Pain in left knee | CPT/HCPCS: 83036 ==

== ENCOUNTER 2024-09-13 13:56 | Outpatient (AMB) | payer BC, SELFPAY ==
--- OUTSIDE RECORDS SUMMARY | 2024-09-13 13:59 | XMS_ITS | Clinical Summary ---
Author Organization [facility] Address [address] [place] [address] Care Team Providers Care Clinical Mental Health Counselor Name Role Phone Unavailable Primary Care Provider [...]
--- NOTE | 2024-09-13 14:00 | MHC.OFFVIS ---
Vital Signs 09/13/24 14:01 Height 5 ft 3 in Weight 187 lb BMI 33.1 BP 136/72 Blood Pressure Location Rt brachial Position Sitting Pulse 90 Pulse Source Pulse Oximeter Pulse Oximetry (%) 98 Oxygen Delivery Method Room Air Intake Visit Reasons: Colonoscopy screening Intake Note: New pt for initial colo consult. PCP via [facility]. CC: Pt denies any GI sx or concerns at this time. FMHx of Crohn's + IBS. No cancer noted pertinent to GI. Manual Arts Therapist Required: No Accompanied by: Self / Same As Patient Allergies Seasonal Allergies Allergy (Mild, Verified 09/13/24 14:01) Nasal congestion black pepper Adverse Reaction (Intermediate, Uncoded 09/13/24 14:01) Diarrhea HPI HPI Colonoscopy screening: Details: 54 year old? female with past medical history of hypercholesteremia, diabetes, obesity, hypertension is here today for pre colonoscopy screening.? Patient was sent to us by her PCP.? This is her first colonoscopy screening.? Patient denies any gastrointestinal symptoms in the past or at present.? Denies any personal or family history of CRC.? Family history of Crohn's and colitis. Denies history of difficulty with sedation or anesthesia in the past.? Negative for history of sleep apnea.? Denies any history of cardiac, renal, pulmonary, or hepatic disease.?? No history of infectious? diseases like hepatitis A, B, C, HIV or tuberculosis.? Patient is not on any anticoagulation [facility] Medical History Cervical cancer screening Surgical History History of excision of lesion (02/08/24) S/P right knee arthroscopy Family History Mother High blood pressure Graves disease IBS (irritable bowel syndrome) Father High blood pressure Paternal Grandmother Breast cancer Maternal Uncle Prostate cancer Maternal Grandmother Heart attack Brother Crohn disease Social History Housing: House Alcohol intake: current Alcohol intake frequency: holidays/special occasions only Patient Tobacco Use Status: Never used Tobacco Tobacco use type: Cigarette e-Cigarette/Vaping Use: Never Used Second Hand Smoke Exposure: No service: No Current occupational status: employed Cognitive needs: No Hearing needs: No Vision needs: No Review of Systems Const Denies weight gain and Denies weight loss ENT Reports no additional complaints, Denies dysphagia and Denies odynophagia Card Reports no additional complaints Resp Reports no additional complaints GI Denies abdominal pain, Denies belching, Denies melena, Denies bloating, Denies change in bowel habits, Denies dysphagia, Denies excessive flatus, Denies dyspepsia, Denies heartburn, Denies diarrhea, Denies loose stools, Denies nausea, Denies odynophagia and Denies vomiting Musc Reports no additional complaints Neuro Reports no additional complaints Psych Reports no additional complaints Endo Reports no additional complaints Physical Exam Vital Signs: BMI result Body Mass Index 33.1 Const General: healthy appearing, no acute distress and well developed Nutritional Appearance: well nourished Orientation/consciousness: patient oriented x3 Resp Effort & Inspection: normal respiratory effort, able to speak in complete sentences, no tracheal deviation and symmetric chest movement Auscultation: clear to auscultation bilaterally Cardio Rate: regular rate GI Inspection: Yes normal to inspection and No distended Palpation (GI): Soft to palpation, not firm, nontender and No hepatosplenomegaly present Auscultation: normal bowel sounds General: Yes no CVA tenderness Back/Spine/Pelvis Back: no CVA tenderness Skin General skin exam: elasticity normal, turgor normal and dry skin Neuro General: patient oriented x3 Psych Appearance: grossly normal Mental Status: mental status grossly normal Assessment & Plan Assessment & Plan (1) Screen for colon cancer: Code(s): Z12.11 - Encounter for screening for malignant neoplasm of colon Plan Patient denies any GI, cardiac or respiratory symptoms.? Denies any issues with anesthesia in the past.? Denies any history of sleep apnea.? No history infectious diseases in the past or present.? Not on any anticoagulation therapy.? No family or personal history of colon cancer or polyps.? Patient denies melena, hematochezia, unintentional weight loss or ribbon like stools.? Discussed at length the pre-procedure,? prep, diet & medications as well as what to expect prior, during and after the procedure.?? Stressed the importance of good bowel prep.? Recommended the use of Vaseline or Calmoseptine OTC & baby wipes with bowel movements to promote comfort.? ?Patient verbalizes understanding and agrees to plan of care.? She was given the opportunity to ask questions and all questions answered.? We will see her after the procedure.? Medications: New bisacodyl (Dulcolax (bisacodyl)) take 4 tabs at noon the day before your colonoscopy 20 mg (4 x 5 mg) PO ONCE 4 tabs 0RF constipation 1 day Z12.11 - Encounter for screening for malignant neoplasm of colon polyethylene glycol 3350 (Miralax) As directed by gastroenterology department at [facility] 238 grams PO ONCE 238 grams 0RF Z12.11 - Encounter for screening for malignant neoplasm of colon Coding Level of Care Code New Pt Level 3 (00866) Diagnoses Screen for colon cancer Z12.11 Time Spent (min) 40 Comment 30 minutes spent with patient and additional 10 minutes spent reviewing her records
--- OUTSIDE RECORDS SUMMARY | 2024-09-13 14:00 | XMS_ITS | Patient Health Record ---
Author Organization [facility] Tanner Luceroley Address [address] [place] [address] Care Team Providers Care Crew Team Member Name Role Phone Adam Shanta Primary Care Provider Unavailab Katie Tran Unavailable [phone] Allergies Allergen (clinical drug ingredient) Drug/Non Drug [...] Referring Provider Last Name Adam [facility] Referred Provider Katie Cast Referred Address [address] [facility] [place],[address], Referred Provider Specialty Podiatry Referral Priority Routine [...] Problem Acquired hammer toe of right foot (541163390544153 5) Other hammer toe(s) (acquired), right foot (M20.41) Active confirmed Problem Acquired hammer toe of left foot (369572040260345 3) Other hammer toe(s) (acquired), left foot (M20.42) Active confirmed Problem Type II diabetes mellitus without complication (118023747) Type 2 diabetes mellitus without complication (E11.9) Active confirmed Vital Signs Blood pressure diastolic 65 mm Hg 07/04/2024 Height 5 ft 3 in in 07/04/2024 Blood pressure systolic 130 mm Hg 07/04/2024 Weight 199 lbs 07/04/2024 BMI 35.25 kg/m2 07/04/2024 Procedures Procedure Date Ordered Date Performed Result Body Sit e 99059-YCCNHQI NAIL, 6 OR MORE 07/04/2024 N/A Encounters Encounter Location Date Provider Diagnosis [facility] [place] [address] [place] [address] 07/04/2024 Katie Cast Pain in right toe(s) [...] Treatment Pending Test Test Name Order Date [id number] NAIL, 6 OR MORE 07/04/2024 Next Appt Details Provider Name:Katie Sutton angela, 07/04/2025 09:00:00 AM, [address] [facility], [address], [place], [address], Insurance Providers Payer Name Payer Address Payer Phone Subscriber Number Group Number Insured Name Patient Relationship to Insured Coverage Start Date Coverage End Date [facility] [address] [place] [address] [id number] Veena Perez Self - patient is the insured Medical (General) History Medical History History ICD Code Anemia Back,Hip,and Knee pain type II diabetes High Blood Pressure Psoriasis/eczema Chicken pox Joint implants/screws Seasonal allergies Surgical History Surgery Date(Month/Year) knee re-alignment 2000 arthroscopic knee surgery 1999 Meniscus debridement 2018 excision of cyst on scalp 2x 2024
[2024-09-13 14:01] VITALS: BP 136/72; PULSE 90; O2SAT 98; BMI 33.1
== END 2024-09-13 14:45 | disposition home or self-care (01) ==
LOC: HO.HGI 13:57
PROVIDERS: Visit Provider Nurse Practitioner Family
DX: Z01.818 Encounter for other preprocedural examination (principal); Z12.11 Encounter for screening for malignant neoplasm of colon
CPT/HCPCS: S0285

== ENCOUNTER 2024-11-21 12:59 | Outpatient (REF) | payer BC, SELFPAY | END 2024-11-21 13:00 | disposition home or self-care (01) | LOC: HO.LNP 12:59 | PROVIDERS: Visit Provider Advanced Practice Midwife | DX: Z01.419 Encounter for gynecological examination (general) (routine) without abnormal findings (principal); N95.1 Menopausal and female climacteric states; N92.6 Irregular menstruation, unspecified; N84.1 Polyp of cervix uteri; N39.46 Mixed incontinence | CPT/HCPCS: 87626; 88175 ==

== ENCOUNTER 2024-11-21 12:59 | Outpatient (AMB) | payer BC, SELFPAY ==
--- NOTE | 2024-11-21 13:05 | A.OFFVIS_ITS ---
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 Stress and urge incontinence. Bled 3 episodes over the last year, last occurrence was in February. Currently not sexually active. Denies any vaginal dryness or irritation. STI testing offered; she declines. Attempting to eat a healthy diet with calcium and vitamin D and stays active with exercise. Last pap smear; years ago, negative. Last mammogram; 11/2023. Colonoscopy is booked next week. Family history of breast cancer. [facility] Medical History Urge and stress incontinence Encounter for well woman exam with routine gynecological exam Irregular menses Perimenopause Cervical polyp Cervical cancer screening Surgical History History of excision of lesion (02/08/24) S/P right knee arthroscopy Family History Mother High blood pressure Graves disease IBS (irritable bowel syndrome) Father High blood pressure Paternal Grandmother Breast cancer Maternal Uncle Prostate cancer Maternal Grandmother Heart attack Brother Crohn disease Social History Housing: House Alcohol intake: current Alcohol intake frequency: holidays/special occasions only Patient Tobacco Use Status: Never used Tobacco Tobacco use type: Cigarette e-Cigarette/Vaping Use: Never Used Second Hand Smoke Exposure: No service: No Current occupational status: employed Cognitive needs: No Hearing needs: No Vision needs: No Female Reproductive History Menstrual Total pregnancies: 0 Date of Mammogram: 11/30/23 (Birad 1) Review of Systems Const All systems reviewed & are unremarkable except as noted in HPI and below Reports as per HPI Eyes Reports no additional complaints ENT Reports no additional complaints Card Reports no additional complaints Resp Reports no additional complaints GI Reports as per HPI and Reports no additional complaints Reports as per HPI Musc Reports no additional complaints Skin/Breast Reports as per HPI Neuro Reports no additional complaints Psych Reports no additional complaints Endo Reports no additional complaints Oskar/Lymph Reports no additional complaints Aller/Immun Reports no additional complaints Physical Exam Vital Signs: Last Vital Signs BP 136/88 11/21/24 13:06 BMI result Body Mass Index 32.8 Const General: cooperative, healthy appearing, no acute distress, well developed and alert Orientation/consciousness: patient oriented x3 HEENT Head: Yes normal to inspection Eyes General: appearance normal, both eyes and all related structures Neck Neck: Yes normal visual inspection Thyroid: Thyroid normal Chest Chest palpation & inspection: normal inspection of the chest and other (no puckering, dimpling, peau de orange, retraction, discharge, masses) Breast/axilla inspection: normal inspection of the breasts Breast/axilla palpation: normal palpation of the breasts Resp Effort & Inspection: normal respiratory effort GI Inspection: Yes normal to inspection Palpation (GI): Soft to palpation Rectal Exam - Female: deferred General: Yes bladder normal to palpation External Female Exam: normal external appearance and normal appearance of the urethra Speculum Exam - Vagina: normal palpation and vagina atrophic Speculum Exam - Cervix: normal palpation and Cervical lesion present polyp Bimanual exam- vagina & uterus: normal bimanual exam, normal palpation, uterine size normal, bladder normal to palpation, normal palpation and non-tender Bimanual Exam- Adnexa, other: no masses Skin General skin exam: no rashes or lesions noted Rashes: no rashes Neuro General: patient oriented x3 Cognition (Neuro): normal cognition Extrem General: Yes normal to inspection Psych Attitude: cooperative Thought process: Normal thought process present Assessment & Plan Assessment & Plan (1) Perimenopause: Code(s): N95.1 - Menopausal and female climacteric states Category: Medical Plan: Perimenopausal changes, plan FSH and LH baseline lab. The patient expressed understanding and agreement with the plan of care. All of her questions and concerns were addressed to the best of my ability. (2) Irregular menses: Code(s): N92.6 - Irregular menstruation, unspecified Category: Medical Plan: Menopause verses perimenopause. Menopause is definitive of 1 year of no menses or 12 months in succession. Report any abnormal uterine bleeding in example prolonged episodes, or short intervals less than 24 days. Total time I personally spent on visit and management today: ?20 minutes. Time spent included review of pertinent office notes in the electronic health record; review of laboratory and imaging results; review of personal family medical history; performing physical exam; discussing diagnosis and plan of care with the patient; documenting the encounter in the EMR. (3) Encounter for well woman exam with routine gynecological exam: Code(s): Z01.419 - Encounter for gynecological examination (general) (routine) without abnormal findings Category: Medical Plan: Discussed: Current recommendations for pap smears per ASCCP guidelines. Pap obtained. Breast awareness, periodic self breast exams and yearly mammogram. Maintain a healthy lifestyle, well balanced diet including Calcium 1,200 mg and Vitamin D 600 IU daily, and routine exercise. Patient verbalizes understanding and agrees to the plan of care. She was given opportunity to ask questions and all questions were answered to the best of my ability. RTO in 1 year for annual pull up hand exam. This note is constructed using voice recognition software. While every effort has been made to ensure accuracy, nuclear medicine medical director errors may have been included. (4) Cervical polyp: Code(s): N84.1 - Polyp of cervix uteri Category: Medical Plan: Discussed: Cervical polyp findings, reviewed images on web page to describe findings, recommended removal due to the possible risk of developing atypical changes that can lead neoplastic changes. The patient expressed understanding and agreement with the plan of care. All of her questions and concerns were addressed to the best of my ability. Patient will be scheduled after the ultrasound findings for a polypectomy. (5) Urge and stress incontinence: Code(s): N39.46 - Mixed incontinence Category: Medical Plan Plan further discussion at her follow up pending her ultrasound results and polypectomy for treatment options. The patient expressed understanding and agreement with the plan of care. All of her questions and concerns were addressed to the best of my ability. Orders: Orders Lutenizing Hormone Today N92.6 - Irregular menstruation, unspecified, N95.1 - Menopausal and female climacteric states HPV High risk Today Z01.419 - Encounter for gynecological examination (general) (routine) without abnormal findings, Z12.4 - Encounter for screening for malignant neoplasm of cervix Pap Smear Today Z01.419 - Encounter for gynecological examination (general) (routine) without abnormal findings, Z12.4 - Encounter for screening for malignant neoplasm of cervix US pelvic and transvaginal Today N84.1 - Polyp of cervix uteri, N92.6 - Irregular menstruation, unspecified Follicle Stimulating Hormone Today R23.2 - Flushing Coding Level of Care Code New Pt Level 2 (58834) New Pt Prev Care 40-64y(15193) Diagnoses Perimenopause N95.1 Irregular menses N92.6 Encounter for well woman exam with routine gynecological exam Z01.419 Cervical polyp N84.1 Urge and stress incontinence N39.46
[2024-11-21 13:06] VITALS: BP 136/88; BMI 32.8
--- OUTSIDE RECORDS SUMMARY | 2024-11-21 16:09 | XMS_ITS | Clinical Summary ---
Author Organization [facility] Address [address] [place] [address] Care Team Providers Care Target Worker Name Role Phone Unavailable Primary Care Provider [...]
--- OUTSIDE RECORDS SUMMARY | 2024-11-21 16:10 | XMS_ITS | Patient Health Record ---
Author Organization [facility] Address [address] [place] [address] Care Team Providers Care Insole Cementer Name Role Phone Adam Shanta Primary Care Provider Unavailab Katie Tran Unavailable [phone] Allergies Allergen (clinical drug ingredient) Drug/Non Drug [...] Referring Provider Last Name Adam [facility]erred [facility] Referred Provider Katie Cast Referred Address [address] [place], [place],[address], Referred Provider Specialty Podiatry Referral Priority Routine [...] Problem Acquired hammer toe of right foot ([id number] 5) Other hammer toe(s) (acquired), right foot (M20.41) Active confirmed Problem Acquired hammer toe of left foot ([id number] 3) Other hammer toe(s) (acquired), left foot (M20.42) Active confirmed Problem Type II diabetes mellitus without complication (478333868) Type 2 diabetes mellitus without complication (E11.9) Active confirmed Vital Signs Blood pressure diastolic 65 mm Hg 07/04/2024 Height 5 ft 3 in in 07/04/2024 Blood pressure systolic 130 mm Hg 07/04/2024 Weight 199 lbs 07/04/2024 BMI 35.25 kg/m2 07/04/2024 Procedures Procedure Date Ordered Date Performed Result Body Sit e 73236-LTIQZDJ NAIL, 6 OR MORE 07/04/2024 N/A Encounters Encounter Location Date Provider Diagnosis [facility] [place] [address] [place] [address] 07/04/2024 Katie Cast Pain in right toe(s) [...] Treatment Pending Test Test Name Order Date [id number] NAIL, 6 OR MORE 07/04/2024 Next Appt Details Provider Name:Katie Sutton angela, 07/04/2025 09:00:00 AM, [address] [facility] [facility], [address], [place], [address], Insurance Providers Payer Name Payer Address Payer Phone Subscriber Number Group Number Insured Name Patient Relationship to Insured Coverage Start Date Coverage End Date [facility] [address] [place] [address] [id number] Veena Perez Self - patient is the insured Medical (General) History Medical History History ICD Code Anemia Back,Hip,and Knee pain type II diabetes High Blood Pressure Psoriasis/eczema Chicken pox Joint implants/screws Seasonal allergies Surgical History Surgery Date(Month/Year) knee re-alignment 2000 arthroscopic knee surgery 1999 Meniscus debridement 2018 excision of cyst on scalp 2x 2024
== END 2024-11-21 13:45 | disposition home or self-care (01) ==
LOC: HO.HWS 12:59
PROVIDERS: Visit Provider Advanced Practice Midwife
DX: Z01.419 Encounter for gynecological examination (general) (routine) without abnormal findings (principal); N84.1 Polyp of cervix uteri; N95.1 Menopausal and female climacteric states; N92.6 Irregular menstruation, unspecified; N39.46 Mixed incontinence
CPT/HCPCS: 99202; 99386; 99459

== ENCOUNTER 2024-11-21 13:53 | Outpatient (REF) | payer BC, SELFPAY ==
[2024-11-22 04:58] LABS: Follicle Stimulating Hormone 25.1 mIU/mL
== END 2024-11-21 13:54 | disposition home or self-care (01) ==
LOC: HO.LAB 13:53
PROVIDERS: Visit Provider Advanced Practice Midwife
DX: N95.1 Menopausal and female climacteric states (principal); N92.6 Irregular menstruation, unspecified; R23.2 Flushing
CPT/HCPCS: 36415; 83001; 83002

== ENCOUNTER 2024-11-28 09:51 | Day surgery (SDC) | payer BC, SELFPAY ==
--- OUTSIDE RECORDS SUMMARY | 2024-11-19 18:09 | XMS_ITS | Patient Health Record ---
Author Organization [facility] Tanner Luceroley Address [address] [place] [address] Care Team Providers Care Aircraft Shipping Checker Name Role Phone Adam Shanta Primary Care Provider Unavailab Katie Tran Unavailable [phone] Allergies Allergen (clinical drug ingredient) Drug/Non Drug [...] Referring Provider Last Name Adam [facility] Referred Provider Katie Cast Referred Address [address] [facility] [place],[address], Referred Provider Specialty Podiatry Referral Priority Routine [...] Problem Acquired hammer toe of right foot (340468640468412 5) Other hammer toe(s) (acquired), right foot (M20.41) Active confirmed Problem Acquired hammer toe of left foot (405365346201048 3) Other hammer toe(s) (acquired), left foot (M20.42) Active confirmed Problem Type II diabetes mellitus without complication (735082288) Type 2 diabetes mellitus without complication (E11.9) Active confirmed Vital Signs Blood pressure diastolic 65 mm Hg 07/04/2024 Height 5 ft 3 in in 07/04/2024 Blood pressure systolic 130 mm Hg 07/04/2024 Weight 199 lbs 07/04/2024 BMI 35.25 kg/m2 07/04/2024 Procedures Procedure Date Ordered Date Performed Result Body Sit e 07568-UPOWRPP NAIL, 6 OR MORE 07/04/2024 N/A Encounters Encounter Location Date Provider Diagnosis [facility] [place] [address] [place] [address] 07/04/2024 Katie Cast Pain in right toe(s) [...] Treatment Pending Test Test Name Order Date [id number] NAIL, 6 OR MORE 07/04/2024 Next Appt Details Provider Name:Katie Sutton angela, 07/04/2025 09:00:00 AM, [address] [facility], [address], [place], [address], Insurance Providers Payer Name Payer Address Payer Phone Subscriber Number Group Number Insured Name Patient Relationship to Insured Coverage Start Date Coverage End Date [facility] [address] [place] [address] [phone] [id number] Veena Perez Self - patient is the insured Medical (General) History Medical History History ICD Code Anemia Back,Hip,and Knee pain type II diabetes High Blood Pressure Psoriasis/eczema Chicken pox Joint implants/screws Seasonal allergies Surgical History Surgery Date(Month/Year) knee re-alignment 2000 arthroscopic knee surgery 1999 Meniscus debridement 2018 excision of cyst on scalp 2x 2024
--- OUTSIDE RECORDS SUMMARY | 2024-11-19 18:09 | XMS_ITS | Clinical Summary ---
Author Organization [facility] Address [address] [place] [address] Care Team Providers Care Optical Manager Name Role Phone Unavailable Primary Care [...] 2) 2020 COVID-19 Vaccine (3 - season) 2024, 05/03/2020 Influenza Vaccine Discontinued 12/23/2019
[2024-11-26 12:38] VITALS: BMI 33.1
--- NOTE | 2024-11-26 13:24 | P.CONAN_ITS ---
Documented by User: Kelsey Nance NP 11/26/24 13:24 HPI - Anesthesia Eval Consult details Narrative: 54 yr old female colonoscopy Anesthesia Pre-Procedure Meds Is the patient on any of the following meds?: GLP1/DPP4 PMFSH Active Problems Active Problems: All Active Problems Encounter for well woman exam with routine gynecological exam (Acute) Bilateral knee pain (Acute) Hypercholesterolemia (Acute) Bilateral hand numbness (Acute) Eczema (Acute) Ingrown toenail (Acute) Diabetes type 2 (Acute) Skin tag (Acute) Annual physical exam (Acute) Pilar cyst (Acute) Morbid obesity with BMI of 40.0-44.9, adult (Acute) Obesity (BMI 30-39.9) (Acute) Scalp cyst (Acute) Cervical cancer screening (Acute) Hypertension (Acute) Urge and stress incontinence (Acute) Irregular menses (Acute) Perimenopause (Acute) Cervical polyp (Acute) Past Medical History Medical History Type 2 diabetes mellitus HTN (hypertension) Urge and stress incontinence Irregular menses Perimenopause Cervical polyp Family History Family History Mother High blood pressure Graves disease IBS (irritable bowel syndrome) Father High blood pressure Paternal Grandmother Breast cancer Maternal Uncle Prostate cancer Maternal Grandmother Heart attack Brother Crohn disease Surgical History Surgical History History of excision of lesion (02/08/24) S/P right knee arthroscopy Social History Social History Housing: House Alcohol intake: current Alcohol intake frequency: holidays/special occasions only Patient Tobacco Use Status: Never used Tobacco Tobacco use type: Cigarette e-Cigarette/Vaping Use: Never Used Second Hand Smoke Exposure: No Advance Directives: No Advance Directives Information Provided: Yes service: No Current occupational status: employed Cognitive needs: No Hearing needs: No Vision needs: No Meds Allergies Allergy/AdvReac Type Severity Reaction Status Date / Time Seasonal Allergies Allergy Mild Nasal Verified 11/21/24 13:06 congestion black pepper AdvReac Intermediate Diarrhea Verified 11/26/24 12:35 Exam Height,Weight and Vital Signs: Height 5 ft 3 in Weight 84.822 kg Documented by User: Yudelka Padron MD 11/28/24 10:06 [facility] Past Medical History Medical History Type 2 diabetes mellitus HTN (hypertension) Urge and stress incontinence Irregular menses Perimenopause Cervical polyp Family History Family History Mother High blood pressure Graves disease IBS (irritable bowel syndrome) Father High blood pressure Paternal Grandmother Breast cancer Maternal Uncle Prostate cancer Maternal Grandmother Heart attack Brother Crohn disease Family history of problems with anesthesia: No Surgical History Surgical History History of excision of lesion (02/08/24) S/P right knee arthroscopy History of Problems with Anesthesia: No Social History Social History Housing: House Alcohol intake: current Alcohol intake frequency: holidays/special occasions only Patient Tobacco Use Status: Never used Tobacco Tobacco use type: Cigarette e-Cigarette/Vaping Use: Never Used Second Hand Smoke Exposure: No Advance Directives: No Advance Directives Information Provided: Yes service: No Current occupational status: employed Cognitive needs: No Hearing needs: No Vision needs: No Meds Allergies Allergy/AdvReac Type Severity Reaction Status Date / Time Seasonal Allergies Allergy Mild Nasal Verified 11/21/24 13:06 congestion black pepper AdvReac Intermediate Diarrhea Verified 11/26/24 12:35 Exam Airway Mallampati Class: II TM Dist: >3cm Neck ROM: Full Heart: rrr Lungs: cta Assessment and Plan Assessment Anesthesia Assessment: Anesthesia Plan Discussed and Chart Reviewed Final Anesthetic Review Family History of Problems with Anesthesia: No History of Problems with Anesthesia: No NPO: Yes ASA Class: II Final Preanesthetic Review: No Changes in Pt Med Stat, Meds/Allgs Chart Reviewed, Consent Obtained/Reviewed and Anes Risks/Benef Reviewed Patient Risk: Low Procedure Risk: Low Anesthetic Plan Anesthetic Plan: MAC: and Agree w/ Assess. and Plan Disposition: Standard PACU
[2024-11-28 10:10] VITALS: BMI 32.2
[2024-11-28 10:17] VITALS: BP 150/85; PULSE 100; RESP 16; TEMP 36.5; O2SAT 98
[2024-11-28 10:22] LABS: Glucose, Whole Blood 81 mg/dL (60-115)
[2024-11-28] MEDS: Lactated Ringers 1,000 ML 100 ML IVCONT (10:28)
--- NOTE | 2024-11-28 11:03 | P.HPSUR_ITS ---
Pre-Procedural Eval Section A - 24 Hr Update-Section A only Date of Service: 11/28/24 Section B - Complete if H&P > 30 days Chief Complaint: screening Details of Present Illness: Cervical cancer screening Surgical History History of excision of lesion (02/08/24) S/P right knee arthroscopy Present Medications: see Short Stay Collaborative assessment Allergies: Allergies Allergy/AdvReac Type Severity Reaction Status Date / Time Seasonal Allergies Allergy Mild Nasal Verified 11/21/24 13:06 congestion black pepper AdvReac Intermediate Diarrhea Verified 11/26/24 12:35 Review of Systems Review of Systems Comment: Ten point ROS negative Exam Exam Comment: Gen appear: No acute distress HEENT: no icterus Chest: No overt resp distress Abd: soft, nontender, nondistended Psych: Stable affect, answering questions appropriately Neuro: A/Ox3 noted to move all extremities spontaneously Ext: no peripheral edema Plan Diagnosis/Plan: Unchanged I have reviewed the history and physical and performed a pertinent physical examination on my patient. No changes have occurred unless specified. Time Spent With Patient Time: Total time managing care of this patient today ____ minutes.
[2024-11-28 11:26] VITALS: BP 120/61; PULSE 92; RESP 14; TEMP 36.3; O2SAT 97
--- NOTE | 2024-11-28 11:30 | P.OPN-COLO_ITS ---
Colonoscopy Operative Note Operative Note Date of Service: 11/28/24 Narrative: Procedure: Colonoscopy Indication: Screening Endoscopist: Barbie Quiroz MD Anesthesia Provider: Andi Martínez CRNA Anesthesia type: MAC Instrument: Olympus [id number]-H190L Consent: Indication, risks vs benefits, and alternatives were discussed with the patient who gave written informed consent to proceed. EKG, pulse, pulse oximetry and blood pressure were monitored throughout the procedure. Please see anesthesia flowsheet. Procedure: The patient was brought to the procedure room and placed in the left lateral decubitus position. IV medications were administered by the anesthesia provider in attendance. A digital rectal exam was performed which was normal. A distal attachment cap was affixed to the tip of the colonoscope which was then inserted through the anus and advanced through the colon to the cecum at 75 cm,and terminal ileum. Appendiceal orifice and ileocecal valve were identified. Mucosa was carefully examined under high definition white light as the instrument was slowly withdrawn in a retrograde panoramic fashion. Retroflexion was performed in rectum. The procedure was not difficult. There were no immediate obvious complications. The quality of the prep was BBPS: 3+2+3 = adequate Withdrawal time 10 minutes. Limitations: No limitations. Findings: Mucosa: Normal to cecum and terminal ileum. Protruding lesions: * Medium internal hemorrhoids without stigmata of recent bleeding. Excavated lesions: * Mild diverticulosis of left sided colon. Impression: 1. Normal colon and terminal ileum mucosa 2. Diverticulosis 3. Internal hemorrhoids Recommendations: - repeat colonoscopy for asymptomatic colorectal ca screening in 10 years
[2024-11-28 11:37] VITALS: BP 129/81; PULSE 94; RESP 18; TEMP 36.3; O2SAT 98
== END 2024-11-28 12:02 | disposition home or self-care (01) ==
PROVIDERS: Visit Provider Internal Medicine
PROC: 0DJD8ZZ Inspection of Lower Intestinal Tract, Via Natural or Artificial Opening Endoscopic (ICD-10-PCS; CPT 45378; principal; 2024-11-28 11:40)
DX: Z12.11 Encounter for screening for malignant neoplasm of colon (principal); K64.8 Other hemorrhoids; K57.90 Diverticulosis of intestine, part unspecified, without perforation or abscess without bleeding; E11.9 Type 2 diabetes mellitus without complications
CPT/HCPCS: 45378; 82947; J2704

== ENCOUNTER → 2024-11-28 09:51 | Outpatient (BNV) | payer BC, SELFPAY | PROVIDERS: Visit Provider Internal Medicine | DX: Z12.11 Encounter for screening for malignant neoplasm of colon (principal); K57.90 Diverticulosis of intestine, part unspecified, without perforation or abscess without bleeding; K64.8 Other hemorrhoids | CPT/HCPCS: 45378 ==

== ENCOUNTER 2024-12-10 08:38 | Outpatient (AMB) | payer BC, SELFPAY ==
--- NOTE | 2024-12-10 08:38 | MHC.PC.OV ---
Vital Signs 12/10/24 08:39 12/10/24 09:03 Height 5 ft 3 in Weight 182 lb 4 oz BMI 32.3 BP 158/90 H 130/70 Blood Pressure Location Lt brachial Lt brachial Position Sitting Sitting Pulse 93 Pulse Source Pulse Oximeter Temp 97.3 F Temp Source Temporal Artery Scan Pulse Oximetry (%) 99 Oxygen Delivery Method Room Air Intake Visit Reasons: f/u weight loss Advertising Sales Executive Required: No Accompanied by: Self / Same As Patient Allergies Seasonal Allergies Allergy (Mild, Verified 12/10/24 08:50) Nasal congestion black pepper Adverse Reaction (Intermediate, Verified 12/10/24 08:50) Diarrhea Medication List - Last Reconciled 12/10/24 by Shanta Medina PA-C cholecalciferol (vitamin D3) 25 mcg PO DAILY meloxicam 15 mg PO DAILY tirzepatide (weight loss) (Zepbound) 15 mg (0.5 mL) subcut QWEEK Tobacco use date assessed: 12/10/24 Dental Screening Dental Screen Date: 12/10/24 Did you have a dental visit in the last 12 months?: No Did you have a dental problem in the last 6 months where you did not have access to dental care?: No Was dental information given to patient?: No HPI f/u weight loss HPI Details [age] year female with past medical history of hypertension and obesity last seen 09/2024 coming in for follow up.? In review of the notes, patient was seen by Gynecology 11/21/2024 recommended cervical polyp removal plan for ultrasound and surgery to follow up.? Underwent colonoscopy 11/28/2024 repeat in 10 years. Presenting for a follow-up visit for the management of her chronic conditions. The patient has a history of diabetes, for which her blood sugar was previously out of control, but her A1c today is controlled. She is being treated with Zepbound, which will be switched to Mounjaro in February due to insurance coverage changes. Regarding her hypertension, she is no longer taking lisinopril and monitors her blood pressure at home one to two times per week, with readings typically in the range of 100-111/67-77 mmHg. [facility], [facility] Medical History Type 2 diabetes mellitus HTN (hypertension) Urge and stress incontinence Irregular menses Perimenopause Cervical polyp Surgical History History of excision of lesion (02/08/24) S/P right knee arthroscopy Family History Mother High blood pressure Graves disease IBS (irritable bowel syndrome) Father High blood pressure Paternal Grandmother Breast cancer Maternal Uncle Prostate cancer Maternal Grandmother Heart attack Brother Crohn disease Social History Housing: House Alcohol intake: current Alcohol intake frequency: holidays/special occasions only Patient Tobacco Use Status: Never used Tobacco Tobacco use type: Cigarette e-Cigarette/Vaping Use: Never Used Second Hand Smoke Exposure: No service: No Current occupational status: employed Cognitive needs: No Hearing needs: No Vision needs: No Female Reproductive History Menstrual Total pregnancies: 0 Date of Mammogram: 11/30/23 (Birad 1) Questionnaire PHQ-9 Over the last 2 weeks, how often have you been bothered by any of the following problems? 1. Little interest or pleasure in doing things: not at all 2. Feeling down, depressed, or hopeless: not at all 3. Trouble falling or staying asleep, or sleeping too much: not at all 4. Feeling tired or having little energy: not at all 5. Poor appetite or overeating: not at all 6. Feeling bad about yourself - or that you are a failure or have let yourself or your family down: not at all 7. Trouble concentrating on things, such as reading the newspaper or watching television: not at all 8. Moving or speaking so slowly that other people could have noticed. Or the opposite - being so fidgety or restless that you have been moving around a lot more than usual: not at all 9. Thoughts that you would be better off or of hurting yourself in some way: not at all Total score: 0 Depression Screening Interpretation: Negative Depression Screening Done: Yes Source: Developed by Drs. Victoriano Marcial, Ying Neff, Torres Watkins and colleagues, with an educational lesley from [employer]. Thrive Questionnaire Date Thrive assessed: 12/10/24 I am a: Patient What is your living situation today?: I have a steady place to live Within the past 12 months, did the food you bought not last and you didn't have the money to get more?: Never true Within the past 12 months, did you worry whether your food would run out before you got money to buy more?: Never true Do you have trouble paying for medicines?: No Do you have trouble getting transportation to medical appointments?: No Do you have trouble paying your heating and electricity bill?: No Do you have trouble taking care of your child, family member or friend?: No Do you have trouble with day-to-day activities such as bathing, preparing meals, shopping, managing finances, etc.?: No Are you currently unemployed and looking for a job?: No Are you interested in more education?: No Please select the resources that you would like help with: None Currently or been in a relationship where the following occur: No concerns reported THRIVE Score: 0 AUDIT C Alcohol Use Questionnaire (AUDIT-C) 1. How often do you have a drink containing alcohol?: Monthly or less 2. How many drinks containing alcohol do you have on a typical day when you are drinking?: 1 or 2 3. How often do you have six or more drinks on one occasion?: Never Total Score: 1 ANAY-7 AMB Questionnaire ANAY-7 Date ANAY - 7 assessed: 12/10/24 Feeling nervous, anxious, or on edge: 0 = Not at all Not being able to stop or control worryin = Not at all Worrying too much about different things: 0 = Not at all Trouble relaxin = Not at all Being so restless that it is hard to sit still: 0 = Not at all Becoming easily annoyed or irritable: 0 = Not at all Feeling afraid as if something awful might happen: 0 = Not at all Total ANAY-7 score (0-4 normal; 5-9 mild; 10-14 moderate; 15-21 severe): 0 Source: Developed by Drs. Victoriano Marcial, Ying Neff, Torres Watkins and colleagues, with an educational lesley from [employer]. Review of Systems Const Denies body aches, Denies chills, Denies fever(s), Denies headache(s) and Denies poor appetite Eyes Reports no additional complaints ENT Denies dysphagia, Denies dizziness, Denies headache(s) and Denies odynophagia Card Denies chest pain, Denies syncope, Denies edema, Denies irregular heart rhythm, Denies lightheadedness and Denies dyspnea Resp Denies cough and Denies dyspnea GI Denies abdominal pain, Denies constipation, Denies dysphagia, Denies diarrhea, Denies nausea, Denies odynophagia and Denies vomiting Reports no additional complaints Musc Reports no additional complaints and Denies abnormal gait Skin/Breast Reports system reviewed and no additional complaints, except as documented Neuro Denies abnormal gait, Denies dizziness, Denies syncope and Denies headache(s) Psych Reports no additional complaints Physical exam (Primary Care) Vital Signs: Last Vital Signs Temp 97.3 F 12/10/24 08:39 Pulse 93 12/10/24 08:39 BP 130/70 12/10/24 09:03 Pulse Ox 99 12/10/24 08:39 Oxygen Delivery Method Room Air 12/10/24 08:39 BMI result Body Mass Index 32.3 Tobacco/Smoking Status: Tobacco use Status Tobacco use date assessed 12/10/24 12/10/24 08:41 Patient Tobacco Use Status Never used Tobacco 12/10/24 08:41 Tobacco use type Cigarette 12/10/24 08:41 e-Cigarette/Vaping Use Never Used 12/10/24 08:41 PHQ-9: PHQ-9 Score PHQ-9: Total score 0 12/10/24 08:51 Depression Screening Interpretation: Negative Thrive Assessment: Date of Thrive Assessment Date Thrive assessed 12/10/24 12/10/24 08:41 Currently or been in a relationship where the following occur: No concerns reported Const General: cooperative, healthy appearing, comfortable and no acute distress Orientation/consciousness: patient oriented x3 HENMT Head: Yes normocephalic Ears: hearing grossly normal bilaterally General nose exam: Normal external nose present Eyes General: appearance normal, both eyes and all related structures Conjunctivae: conjunctivae normal Neck Neck: Yes full ROM and Yes no lymphadenopathy Resp Effort & Inspection: normal respiratory effort Auscultation: clear to auscultation bilaterally, no crackles, no rales, no rhonchi and no wheezes Cardio Rate: regular rate Rhythm: regular rhythm Skin General skin exam: no rashes or lesions noted Neuro General: patient oriented x3 Gait exam (Neuro): Normal gait present Extrem General: Yes normal to inspection, Yes full ROM and No edema Psych Affect: normal affect Attitude: cooperative Insight: Good insight present (Psych) Judgement: Good judgement present (Psych) Coding Level of Care Code Est Pt Level 3 (46878) Diagnoses Primary hypertension I10 Hypertension type: primary hypertension Hypercholesterolemia E78.00 Diabetes type 2 E11.9 Obesity (BMI 30-39.9) E66.9 Cervical polyp N84.1 Assessment & Plan Assessment & Plan (1) Hypertension: Code(s): I10 - Essential (primary) hypertension Category: Medical Qualifiers: Hypertension type: primary hypertension Qualified Code(s): I10 - Essential (primary) hypertension Plan: Lisinopril was discontinued at her last visit as her home values were within normal limits. Blood pressure normal in the office today her goal blood pressures less than 140/90. (2) Hypercholesterolemia: Code(s): E78.00 - Pure hypercholesterolemia, unspecified Category: Medical Plan: Avoid foods that are high in cholesterol such as red meat, fried foods, eggs and baked goods. Triglyceride goal of less than 150 and LDL goal of less than 100. Last LDL within her goal, ordered for repeat blood work. (3) Diabetes type 2: Code(s): E11.9 - Type 2 diabetes mellitus without complications Category: Medical Plan: Decrease the amount of carbohydrates such as pasta, bread, rice, and potatoes and limit the amount of sweets. Although fruits are generally healthy they should be eaten in moderation as they are still high in sugar. Hemoglobin A1c goal of less than 7%. A1c in the clinic at goal continue on Zepbound She informs of the Zepbound we will no longer be covered by insurance starting in February of plan to switch to Mounjaro at this time as she has been having good control of her A1c while on this medication. (4) Obesity (BMI 30-39.9): Code(s): E66.9 - Obesity, unspecified Category: Medical Plan: Healthy diet and regular exercise is encouraged. Patient has lost 65 lbs since starting Zepbound and 5 lbs in the last 3 months. Plan to continue on Zepbound 15mg at this time. (5) Cervical polyp: Code(s): N84.1 - Polyp of cervix uteri Category: Medical Plan: Patient has ultrasound later today in preparation for surgery. Plan This note was constructed using voice recognition software. While every effort has been made to ensure accuracy and core cutter and reamer, still areas may have been included sometimes these areas may affect the content or meeting of the given symptoms. Total time spent caring for the patient today was 20 minutes. This includes time spent before the visit reviewing the chart, time spent during the visit, and time spent after the visit and documentation. Patient was informed and verbally consented to the use of an ambient scribe for clinic note documentation during this visit. Orders: Orders TSH reflex Free T4 3 Months E11.9 - Type 2 diabetes mellitus without complications, Z13.29 - Encounter for screening for other suspected endocrine disorder Vitamin B12 and Folate 3 Months E11.9 - Type 2 diabetes mellitus without complications, Z13.21 - Encounter for screening for nutritional disorder Vitamin D 25-OH Total 3 Months E11.9 - Type 2 diabetes mellitus without complications, Z13.21 - Encounter for screening for nutritional disorder Comprehensive Met. Panel 3 Months E11.9 - Type 2 diabetes mellitus without complications, Z00.00 - Encounter for general adult medical examination without abnormal findings Lipid Panel 3 Months E11.9 - Type 2 diabetes mellitus without complications, E78.00 - Pure hypercholesterolemia, unspecified Hemoglobin A1c 3 Months E11.65 - Type 2 diabetes mellitus with hyperglycemia, E11.9 - Type 2 diabetes mellitus without complications Complete Blood Count Auto Diff 3 Months E11.9 - Type 2 diabetes mellitus without complications, Z13.0 - Encounter for screening for diseases of the blood and blood-forming organs and certain disorders involving the immune mechanism
[2024-12-10 08:39] VITALS: BP 158/90; PULSE 93; TEMP 36.3; O2SAT 99; BMI 32.3
[2024-12-10 09:03] VITALS: BP 130/70
--- OUTSIDE RECORDS SUMMARY | 2024-12-10 09:03 | XMS_ITS | Clinical Summary ---
Author Organization [facility] Address [address] [place] [address] Care Team Providers Care Motor Teacher Name Role Phone Unavailable Primary Care Provider [...] COVID-19 Vaccine (3 - season) 2024, 05/03/2020 RSV Vaccine 50 years and old er and Patients (1 - 1-dose 75+ series) 2045 Influenza Vaccine Discontinued 12/23/2019
--- OUTSIDE RECORDS SUMMARY | 2024-12-10 09:03 | XMS_ITS | Patient Health Record ---
Author Organization [facility]anner Luceroley Address [address] [place] [address] Care Team Providers Care Paper Feeder Name Role Phone Adam Shanta Primary Care Provider Unavailab Katie Tran Unavailable [phone] Allergies Allergen (clinical drug ingredient) Drug/Non Drug [...] Referring Provider Last Name Adam Referred Organization [facility] Referred Provider Katie Cast Referred Address [address] [facility] [place], [place],[address], Referred Provider Specialty Podiatry Referral Priority Routine [...] Problem Acquired hammer toe of right foot ([id number] 5) Other hammer toe(s) (acquired), right foot (M20.41) Active confirmed Problem Acquired hammer toe of left foot ([id number] 3) Other hammer toe(s) (acquired), left foot (M20.42) Active confirmed Problem Type II diabetes mellitus without complication (500845359) Type 2 diabetes mellitus without complication (E11.9) Active confirmed Vital Signs Blood pressure diastolic 65 mm Hg 07/04/2024 Height 5 ft 3 in in 07/04/2024 Blood pressure systolic 130 mm Hg 07/04/2024 Weight 199 lbs 07/04/2024 BMI 35.25 kg/m2 07/04/2024 Procedures Procedure Date Ordered Date Performed Result Body Sit e [id number] NAIL, 6 OR MORE 07/04/2024 N/A Encounters Encounter Location Date Provider Diagnosis [facility] [address] [place] [address] 07/04/2024 Katie Cast Pain in right toe(s) [...] Treatment Pending Test Test Name Order Date [id number] NAIL, 6 OR MORE 07/04/2024 Next Appt Details Provider Name:Katie Sutton angela, 07/04/2025 09:00:00 AM, [address] [facility], [address], [place], [address], Insurance Providers Payer Name Payer Address Payer Phone Subscriber Number Group Number Insured Name Patient Relationship to Insured Coverage Start Date Coverage End Date [facility] [address] [place] [address] [id number] Veena Perez Self - patient is the insured Medical (General) History Medical History History ICD Code Anemia Back,Hip,and Knee pain type II diabetes High Blood Pressure Psoriasis/eczema Chicken pox Joint implants/screws Seasonal allergies Surgical History Surgery Date(Month/Year) knee re-alignment 2000 arthroscopic knee surgery 1999 Meniscus debridement 2018 excision of cyst on scalp 2x 2024
== END 2024-12-10 09:14 | disposition home or self-care (01) ==
LOC: HO.HMCH 08:38
DX: I10 Essential (primary) hypertension (principal); E11.9 Type 2 diabetes mellitus without complications; E66.9 Obesity, unspecified; Z68.32 Body mass index [BMI] 32.0-32.9, adult; E78.00 Pure hypercholesterolemia, unspecified; N84.1 Polyp of cervix uteri

== ENCOUNTER 2024-12-10 14:36 | Outpatient (REF) | payer BC, SELFPAY ==
--- NOTE | ~2024-12-10 | US_ITS ---
EXAMINATION: US PELVIS TRANSABDOMINAL AND TRANSVAGINAL HISTORY: N84.1 - Polyp of cervix uteri COMPARISON: There are no prior studies available for comparison. TECHNIQUE: Transabdominal and endovaginal real-time 2D acevedo-scale ultrasound was performed. FINDINGS: Uterus: The uterus is normal in size, measuring 6.7 x 0.4 x 4.2 cm. Myometrium has a normal echotexture. No fibroids are identified. Endometrium: The endometrial stripe measures 7 mm in thickness. There is a 13 x 7 x 8 mm soft tissue density in the cervix compatible with the patient's known polyp. Right ovary: The right ovary measures 2.1 x 1.5 x 1.4 cm. The right ovary is normal in size and echotexture. Left ovary: The left ovary measures 2.9 x 1.8 x 2.1 cm. The left ovary contains a 1.8 x 1.6 x 1.6 cm hypoechoic mass with a onion skin appearance, which may represent an epidermoid. Pelvic fluid: none. US/US pelvic and transvaginal IMPRESSION: 1. 13 x 7 x 8 mm soft tissue density in the cervix compatible with the patient's known polyp. 2. 1.8 x 1.6 x 1.6 cm left ovarian mass which may represent an epidermoid. Pelvic MRI should be considered. Electronically signed by: Victoriano Angulo MD 12/10/2024 03:25 PM [facility]
--- OUTSIDE RECORDS SUMMARY | 2024-12-10 17:38 | XMS_ITS | Clinical Summary ---
Author Organization [facility] Address [address] [place] [address] Care Team Providers Care Test And Balance Engineer Name Role Phone Unavailable Primary Care Provider [...]
== END 2024-12-10 14:37 | disposition home or self-care (01) ==
LOC: HO.US 14:36
PROVIDERS: Visit Provider Advanced Practice Midwife
DX: N84.1 Polyp of cervix uteri (principal); N92.6 Irregular menstruation, unspecified; I10 Essential (primary) hypertension; E78.00 Pure hypercholesterolemia, unspecified; E11.9 Type 2 diabetes mellitus without complications; E66.9 Obesity, unspecified
CPT/HCPCS: 76830; 76856

== ENCOUNTER → 2024-12-10 14:38 | Outpatient (BNV) | payer BC, SELFPAY | PROVIDERS: Visit Provider Radiology Diagnostic Radiology | DX: N84.1 Polyp of cervix uteri (principal) | CPT/HCPCS: 76830; 76856 ==

== ENCOUNTER 2024-12-18 09:33 | Outpatient (AMB) | payer BC, SELFPAY ==
--- NOTE | 2024-12-18 09:37 | A.OFFVIS_ITS ---
Vital Signs 12/18/24 09:41 Height 5 ft 3 in BP 122/72 Blood Pressure Location Lt brachial Position Sitting Intake Visit Reasons: Ultra sound follow up Intake Note: no c/o Creative Arts Music Therapist Required: No Makeup Sales Advisor: Makeup Sales Advisor Present Allergies Seasonal Allergies Allergy (Mild, Verified 12/18/24 09:43) Nasal congestion black pepper Adverse Reaction (Intermediate, Verified 12/18/24 09:43) Diarrhea Medication List - Last Reconciled 12/18/24 by Kerline Bustos LPN cholecalciferol (vitamin D3) 25 mcg PO DAILY meloxicam 15 mg PO DAILY tirzepatide (weight loss) (Zepbound) 15 mg (0.5 mL) subcut QWEEK Is last menstrual period known: No Post menopausal: Yes Do you need a note to return to daycare/school/sports/work: No HPI Comments Details: Patient is here today for a follow up pelvic ultrasound. History of possible postmenopausal bleeding FSH LH slightly elevated, has not gone through 1 year of no menses. History of cervical polyp. [facility] Medical History Ovarian mass Ovarian mass, left Type 2 diabetes mellitus HTN (hypertension) Urge and stress incontinence Irregular menses Perimenopause Cervical polyp Surgical History History of excision of lesion (02/08/24) S/P right knee arthroscopy Family History Mother High blood pressure Graves disease IBS (irritable bowel syndrome) Father High blood pressure Paternal Grandmother Breast cancer Maternal Uncle Prostate cancer Maternal Grandmother Heart attack Brother Crohn disease Social History Housing: House Alcohol intake: current Alcohol intake frequency: holidays/special occasions only Patient Tobacco Use Status: Never used Tobacco Tobacco use type: Cigarette e-Cigarette/Vaping Use: Never Used Second Hand Smoke Exposure: No service: No Current occupational status: employed Cognitive needs: No Hearing needs: No Vision needs: No Female Reproductive History Menstrual History of abnormal pap smear: No Date of Mammogram: 12/10/24 History of abnormal mammogram: No Review of Systems Const All systems reviewed & are unremarkable except as noted in HPI and below Endo Reports no additional complaints Physical Exam Vital Signs: Last Vital Signs BP 122/72 12/18/24 09:41 Const General: cooperative, healthy appearing and no acute distress Psych Appearance: well kempt Attitude: cooperative Thought process: Normal thought process present Results Reviewed Results Reviewed: [address] [address] Ultrasound Report Signed Patient: Veena Perez MR#: [id number] : 1970 Acct:[id number] Age/Sex: 54 / F ADM Date: 12/10/24 Loc: HO.US Attending Dr: Tonia Gillis CNM Ordering Physician: Tonia Gillis CNM Date of Service: 12/10/24 Procedure(s): US pelvic and transvaginal Accession Number(s): [id number] cc: Shanta Medina PA-C; Tonia Gillis CNM~ Reason for Exam: N84.1 - Polyp of cervix uteri EXAMINATION: US PELVIS TRANSABDOMINAL AND TRANSVAGINAL HISTORY: N84.1 - Polyp of cervix uteri COMPARISON: There are no prior studies available for comparison. TECHNIQUE: Transabdominal and endovaginal real-time 2D acevedo-scale ultrasound was performed. FINDINGS: Uterus: The uterus is normal in size, measuring 6.7 x 0.4 x 4.2 cm. Myometrium has a normal echotexture. No fibroids are identified. Endometrium: The endometrial stripe measures 7 mm in thickness. There is a 13 x 7 x 8 mm soft tissue density in the cervix compatible with the patient's known polyp. Right ovary: The right ovary measures 2.1 x 1.5 x 1.4 cm. The right ovary is normal in size and echotexture. Left ovary: The left ovary measures 2.9 x 1.8 x 2.1 cm. The left ovary contains a 1.8 x 1.6 x 1.6 cm hypoechoic mass with a onion skin appearance, which may represent an epidermoid. Pelvic fluid: none. US/US pelvic and transvaginal IMPRESSION: 1. 13 x 7 x 8 mm soft tissue density in the cervix compatible with the patient's known polyp. 2. 1.8 x 1.6 x 1.6 cm left ovarian mass which may represent an epidermoid. Pelvic MRI should be considered. Electronically signed by: Victoriano Angulo MD 12/10/2024 03:25 PM [facility] Dictated By: Victoriano Angulo MD Signed By: <Electronically signed by Victoriano Angulo MD in OV> 12/10/24 1525 DD/ 1449 TD/TT: 12/10/24 1505 Mc Kay Machine Operator: Assessment & Plan Assessment & Plan (1) Ovarian mass: Code(s): N83.8 - Other noninflammatory disorders of ovary, fallopian tube and broad ligament Category: Medical Plan: Discussed: Ultrasound findings- Counseled regarding findings of: 1. 13 x 7 x 8 mm soft tissue density in the cervix compatible with the patient's known polyp. 2. 1.8 x 1.6 x 1.6 cm left ovarian mass which may represent an epidermoid. Pelvic MRI should be considered. Complex ovarian cyst/mass, findings maybe benign consistent with dermoid, some develop into premalignant or malignant tumors. Limitations of testing for di agnostic purposes. Further monitoring and evaluation is recommended with US, possible CT, or MRI study. If persists, or is indicated (Ca-125, Carbohydrate Antigen 19-9, & Carcinoembryonic Antigen) labs will be ordered and referral to [facility] or general gynecology for MD care if indicated for possible surgical consult. Follow up MRI in person for test results. All of her questions and concerns were addressed to the best of my ability and shared decision making. She is agreeable to the plan of care. (2) Cervical polyp: Code(s): N84.1 - Polyp of cervix uteri Category: Medical Plan: Plan polypectomy same-day with the endometrial biopsy. The patient expressed understanding and agreement with the plan of care. All of her questions and concerns were addressed to the best of my ability. (3) Irregular menses: Code(s): N92.6 - Irregular menstruation, unspecified Category: Medical Plan: Menopause verses perimenopause. Menopause is definitive of 1 year of no menses or 12 months in succession. Report any abnormal uterine bleeding in example prolonged episodes, or short intervals less than 24 days. Advised to schedule endometrial biopsy to rule out any abnormal changes including atypia, hyperplasia, precancer or cancer cells. Preprocedure anticipatory guidance reviewed to take 3 Advil 1 hour before procedure appointment time and to take with food and fluids. The patient expressed understanding and agreement with the plan of care. All of her questions and concerns were addressed to the best of my ability. Plan This note is constructed using voice recognition software. While every effort has been made to ensure accuracy, mobile tester errors may have been included. Orders: Orders [facility] Peritoneal Fluid Today N83.8 - Other noninflammatory disorders of ovary, fallopian tube and broad ligament CA-125 Today N83.8 - Other noninflammatory disorders of ovary, fallopian tube and broad ligament Carcinoembryonic Antigen Today N83.8 - Other noninflammatory disorders of ovary, fallopian tube and broad ligament MR pelvis wo/w con Today N83.8 - Other noninflammatory disorders of ovary, fallopian tube and broad ligament Carbohydrate Antigen 19-9 Today N83.8 - Other noninflammatory disorders of ovary, fallopian tube and broad ligament Inhibin B Today N83.8 - Other noninflammatory disorders of ovary, fallopian tube and broad ligament Coding Level of Care Code Est Pt Level 3 (20302) Diagnoses Ovarian mass N83.8 Cervical polyp N84.1 Irregular menses N92.6
[2024-12-18 09:41] VITALS: BP 122/72
--- OUTSIDE RECORDS SUMMARY | 2024-12-18 10:46 | XMS_ITS | Patient Health Record ---
Author Organization [facility] Address [address] [place] [address] Care Team Providers Care Steam Frame Operator Name Role Phone Adam Shanta Primary Care Provider Unavailab Katie Tran Unavailable [phone] Allergies Allergen (clinical drug ingredient) Drug/Non Drug [...] Referring Provider Last Name Adam Referred Organization [facility] Referred Provider Katie Cast Referred Address [address] [facility] [place], [place],[address], Referred Provider Specialty Podiatry Referral Priority Routine [...] Problem Acquired hammer toe of right foot (469432623676366 5) Other hammer toe(s) (acquired), right foot (M20.41) Active confirmed Problem Acquired hammer toe of left foot (426342131239566 3) Other hammer toe(s) (acquired), left foot (M20.42) Active confirmed Problem Type II diabetes mellitus without complication (981809090) Type 2 diabetes mellitus without complication (E11.9) Active confirmed Vital Signs Blood pressure diastolic 65 mm Hg 07/04/2024 Height 5 ft 3 in in 07/04/2024 Blood pressure systolic 130 mm Hg 07/04/2024 Weight 199 lbs 07/04/2024 BMI 35.25 kg/m2 07/04/2024 Procedures Procedure Date Ordered Date Performed Result Body Sit e 91788-DIGWEDX NAIL, 6 OR MORE 07/04/2024 N/A Encounters Encounter Location Date Provider Diagnosis [facility] [place] [address] [place] [address] 07/04/2024 Katie Cast Pain in right toe(s) [...] Treatment Pending Test Test Name Order Date [id number]-[id number] NAIL, 6 OR MORE 07/04/2024 Next Appt Details Provider Name:Katie Sutton angela, 07/04/2025 09:00:00 AM, [address] [facility], [address], [place], [address], Insurance Providers Payer Name Payer Address Payer Phone Subscriber Number Group Number Insured Name Patient Relationship to Insured Coverage Start Date Coverage End Date [facility] [address] [place] [address] [id number] Veena Perez Self - patient is the insured Medical (General) History Medical History History ICD Code Anemia Back,Hip,and Knee pain type II diabetes High Blood Pressure Psoriasis/eczema Chicken pox Joint implants/screws Seasonal allergies Surgical History Surgery Date(Month/Year) knee re-alignment 2000 arthroscopic knee surgery 1999 Meniscus debridement 2018 excision of cyst on scalp 2x 2024
--- OUTSIDE RECORDS SUMMARY | 2024-12-18 10:46 | XMS_ITS | Clinical Summary ---
Author Organization [facility] Address [address] [place] [address] Care Team Providers Care Pmo Lead Name Role Phone Unavailable Primary Care Provider [...]
== END 2024-12-18 11:17 | disposition home or self-care (01) ==
LOC: HO.HWS 09:33
PROVIDERS: Visit Provider Advanced Practice Midwife
DX: N83.8 Other noninflammatory disorders of ovary, fallopian tube and broad ligament (principal); N84.1 Polyp of cervix uteri; N92.6 Irregular menstruation, unspecified
CPT/HCPCS: 99213

== ENCOUNTER 2024-12-21 10:21 | Outpatient (REF) | payer BC, SELFPAY ==
[2024-12-21 12:08] LABS: Carcinoembryonic Antigen < 1.73 ng/mL
[2024-12-26 09:07] LABS: CA-125 5 U/mL (<35)
== END 2024-12-21 10:22 | disposition home or self-care (01) ==
LOC: HO.LAB 10:21
PROVIDERS: Visit Provider Advanced Practice Midwife
DX: N83.8 Other noninflammatory disorders of ovary, fallopian tube and broad ligament (principal)
CPT/HCPCS: 36415; 82378; 83520; 86301; 86304

== ENCOUNTER 2024-12-25 07:33 | Outpatient (AMB) | payer BC, SELFPAY ==
--- NOTE | 2024-12-25 07:37 | MHC.OFFVIS ---
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 Awaiting MRI authorization to rule out dermoid. [facility] Medical History Ovarian mass Ovarian mass, left Type 2 diabetes mellitus HTN (hypertension) Urge and stress incontinence Irregular menses Perimenopause Cervical polyp Surgical History History of excision of lesion (02/08/24) S/P right knee arthroscopy Family History Mother High blood pressure Graves disease IBS (irritable bowel syndrome) Father High blood pressure Paternal Grandmother Breast cancer Maternal Uncle Prostate cancer Maternal Grandmother Heart attack Brother Crohn disease Social History Housing: House Alcohol intake: current Alcohol intake frequency: holidays/special occasions only Patient Tobacco Use Status: Never used Tobacco Tobacco use type: Cigarette e-Cigarette/Vaping Use: Never Used Second Hand Smoke Exposure: No service: No Current occupational status: employed Cognitive needs: No Hearing needs: No Vision needs: No Review of Systems Const All systems reviewed & are unremarkable except as noted in HPI and below Physical Exam Vital Signs: Last Vital Signs BP 132/88 12/25/24 07:44 BMI result Body Mass Index 32.2 Const General: cooperative, healthy appearing and no acute distress Orientation/consciousness: patient oriented x3 GI Inspection: Yes normal to inspection Palpation (GI): Soft to palpation and Other GI palpation findings present (Nontender) Rectal Exam - Female: visual inspection normal General: Yes bladder normal to palpation External Female Exam: normal appearance of the urethra Speculum Exam - Vagina: normal appearance of the vagina, normal palpation and normal vaginal discharge Speculum Exam - Cervix: normal appearance of the cervix and normal palpation Bimanual exam- vagina & uterus: normal bimanual exam, normal palpation, uterine size normal, bladder normal to palpation, normal palpation, uterine shape normal and non-tender Bimanual Exam- Adnexa, other: normal adnexae Neuro General: patient oriented x3 Office Procedures Cervical Polypectomy Details Details: Consent for Cervical Polypectomy procedure: The patient is here today for an Cervical Polypectomy. She was counseled regarding anticipatory guidance for the procedure including the risks for pain, infection, bleeding, perforation, potential injury to the tissues may include the cervix, vagina, uterus, tubes, bladder and bowels. These injuries may include further treatment and evaluation including surgery, blood transfusions, antibiotics, hospitalizations and anesthesia. Permanent injury and scarring can occur. She was consented for the procedure, and the consent forms were signed. She is agreeable to have the procedure today. All questions were answered. Polypectomy Procedure: The patient was placed in the dorsal lithotomy position and a sterile speculum inserted. Using aseptic technique for the procedure. The cervix was cleansed with Betadine x 3 swabs. The polyp was grasped with a ring forceps and removed. The tissue sample was placed in formalin in a patient labeled container by staff assisting and sent to the pathology department for processing and interpretation. Minimal bleeding was observed.The patient tolerate the procedure well and was in good condition when leaving the department. Post Polypectomy Care: There may be some bleeding for several days that is usually light and can turn to a light brown or pink in color. Mild cramping may occur. Nothing in the vagina including: tampons, douching or intimacy for a week. You may take an over the counter mild analgesia like Tylenol or Advil (if no allergies), per the manufacturers recommendations on dosing and frequency. Follow the directions completely. Call the office if any: fever (over 100.4), flu like symptoms, abdominal pain, worsening cramping not resolved with over the counter medications, foul smelling vaginal odor, signs of infected appearing discharge, or heavy bleeding. A follow up for results on the pathology will be made. Please call the office if you have any concerns. This note is constructed using voice recognition software. While every effort has been made to ensure accuracy, mannequin molder errors may have been included. CPT: 22708 - Cervical Polypectomy All charges added?: Procedure code (CPT) selection complete Endometrial Biopsy Details: The patient is here today for an endometrial biopsy due to AUB to rule out any pathology including atypical, hyperplasia or cancer cells of the uterus. She was counseled regarding anticipatory guidance for the procedure including the risks for pain, infection, bleeding, perforation, potential injury to the tissues may include the cervix, uterus, tubes, bladder and bowels. These injuries may include further treatment and evaluation including surgery, blood transfusions, antibiotics, hospitalizations and anesthesia. Permanent injury and scarring can occur. She was consented for the procedure, and the consent forms were signed. She is agreeable to have the procedure today. All questions were answered. Endometrial Biopsy Procedure: The patient was placed in the dorsal lithotomy position and a sterile speculum inserted. Using aseptic technique for the procedure. The cervix was cleansed with Betadine x 3 swabs. A single toothed tenaculum was placed on the cervix for stabilization and the uterus was sounded to 7cm with a 4mm pipelle, and tissue sample obtained. Minimal bleeding was observed. The tissue sample was placed in formalin in a patient labeled container by staff assisting and sent to the pathology department for processing and interpretation. The patient tolerate the procedure well and was in good condition when leaving the department. Endometrial Biopsy Post Procedure Care: Nothing in the vagina including: tampons, douching or intimacy until all the bleeding has subsided. There may be some post procedure bleeding for several days, this bleeding is usually light and may turn to a light brown or pink color. Mild cramps may occurs. Nothing in the vaginal including: tampons, douching, or intimacy until all the bleeding has subsided. You may take an over the counter mild analgesic such as Tylenol or Advil (if no allergies) per the manufactures recommendation on dosing, frequency, and follow the directions completely. Call the office if any: fever (over 100.4), flu like symptoms, abdominal pain (worse than cramping), foul smelling, infected appearing vaginal discharge, or heavy bleeding. If indicated: Use condoms to prevent and STI's, and only after the bleeding has stopped completely. Return to the office in 2 weeks for results and plan of care. This note is constructed using voice recognition software. While every effort has been made to ensure accuracy, mannequin molder errors may have been included. 26665-Mtknzeuhlgf Biopsy Results AMB Test Urine AMB Test Urine Negative Last Edit by JESSE Crain on 12/25/24 07:50 Results Reviewed Results Reviewed: Laboratory Last Values [facility] Negative 12/25/24 07:49 Assessment & Plan Assessment & Plan (1) Cervical polyp: Code(s): N84.1 - Polyp of cervix uteri Category: Medical Plan: Cervical polypectomy completed, see procedure notes. (2) Irregular menses: Code(s): N92.6 - Irregular menstruation, unspecified Category: Medical Plan Endometrial biopsy completed. See procedure notes. Scheduling an MRI awaiting prior authorization for a follow up on possible dermoid. Tumor marker results are pending. This note is constructed using voice recognition software. While every effort has been made to ensure accuracy, mannequin molder errors may have been included. Orders: Orders AMB HCG Urine Test Today N92.6 - Irregular menstruation, unspecified Surgical Today N84.1 - Polyp of cervix uteri, N92.6 - Irregular menstruation, unspecified Coding Level of Care Code Procedure Only Diagnoses Cervical polyp N84.1 Irregular menses N92.6 CPT Codes Details - CPT: 45597 - Cervical Polypectomy ([id number]) Endometrial Biopsy - CPT: 74050-Hocyqzpvzdo Biopsy ([id number])
[2024-12-25 07:44] VITALS: BP 132/88; BMI 32.2
--- OUTSIDE RECORDS SUMMARY | 2024-12-25 15:05 | XMS_ITS | Patient Health Record ---
Author Organization [facility] Address [address] [place] [address] Care Team Providers Care Cork Pressing Machine Operator Name Role Phone Adam Shanta Primary Care Provider Unavailab Katie Tran Unavailable [phone] Allergies Allergen (clinical drug ingredient) Drug/Non Drug [...] Referring Provider Last Name Adam [facility] Referred Provider Katie Cast Referred Address [address] [facility] [place], [place], Referred Provider Specialty Podiatry Referral Priority Routine [...] Problem Acquired hammer toe of right foot (610772551556414 5) Other hammer toe(s) (acquired), right foot (M20.41) Active confirmed Problem Acquired hammer toe of left foot (551970834282902 3) Other hammer toe(s) (acquired), left foot (M20.42) Active confirmed Problem Type II diabetes mellitus without complication (460564070) Type 2 diabetes mellitus without complication (E11.9) Active confirmed Vital Signs Blood pressure diastolic 65 mm Hg 07/04/2024 Height 5 ft 3 in in 07/04/2024 Blood pressure systolic 130 mm Hg 07/04/2024 Weight 199 lbs 07/04/2024 BMI 35.25 kg/m2 07/04/2024 Procedures Procedure Date Ordered Date Performed Result Body Sit e 26783-FJDDOGP NAIL, 6 OR MORE 07/04/2024 N/A Encounters Encounter Location Date Provider Diagnosis [facility] [place] [address] [place] [address] 07/04/2024 Katie Cast Pain in right toe(s) [...] Treatment Pending Test Test Name Order Date [id number] NAIL, 6 OR MORE 07/04/2024 Next Appt Details Provider Name:Katie Sutton angela, 07/04/2025 09:00:00 AM, [address] [facility], [address], [place], [address], Insurance Providers Payer Name Payer Address Payer Phone Subscriber Number Group Number Insured Name Patient Relationship to Insured Coverage Start Date Coverage End Date [facility] [address] [place] [address] [id number] Veena Perez Self - patient is the insured Medical (General) History Medical History History ICD Code Anemia Back,Hip,and Knee pain type II diabetes High Blood Pressure Psoriasis/eczema Chicken pox Joint implants/screws Seasonal allergies Surgical History Surgery Date(Month/Year) knee re-alignment 2000 arthroscopic knee surgery 1999 Meniscus debridement 2018 excision of cyst on scalp 2x 2024
--- OUTSIDE RECORDS SUMMARY | 2024-12-25 15:05 | XMS_ITS | Clinical Summary ---
Author Organization [facility] Address [address] [place] [address] Care Team Providers Care Home Health Care Coordinator Name Role Phone Unavailable Primary Care Provider [...]
== END 2024-12-25 08:29 | disposition home or self-care (01) ==
LOC: HO.HWS 07:34
PROVIDERS: Visit Provider Advanced Practice Midwife
DX: N84.1 Polyp of cervix uteri (principal); N92.6 Irregular menstruation, unspecified; Z32.02 Encounter for pregnancy test, result negative
CPT/HCPCS: 58100

== ENCOUNTER 2024-12-25 07:33 | Outpatient (REF) | payer BC, SELFPAY | END 2024-12-25 07:34 | disposition home or self-care (01) | LOC: HO.LNP 07:33 | PROVIDERS: Visit Provider Advanced Practice Midwife | DX: N84.1 Polyp of cervix uteri (principal); N92.6 Irregular menstruation, unspecified | CPT/HCPCS: 58100; 81025; 88305 ==

== ENCOUNTER 2025-01-08 10:50 | Outpatient (AMB) | payer BC, SELFPAY ==
--- NOTE | 2025-01-08 10:49 | A.OFFVIS_ITS ---
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 Time spent included review of pertinent office notes in the electronic health record; review of laboratory and imaging results; review of personal family medical history; discussing diagnosis and plan of care with the patient; d ocumenting the encounter in the EMR. Patient presents to discuss: Biopsy results, history of irregular bleeding and cervical polypectomy. Has not completed 1 year without a cycle. MRI pending for rule out dermoid cyst. [facility] Medical History Ovarian mass Ovarian mass, left Type 2 diabetes mellitus HTN (hypertension) Urge and stress incontinence Irregular menses Perimenopause Cervical polyp Surgical History History of excision of lesion (02/08/24) S/P right knee arthroscopy Family History Mother High blood pressure Graves disease IBS (irritable bowel syndrome) Father High blood pressure Paternal Grandmother Breast cancer Maternal Uncle Prostate cancer Maternal Grandmother Heart attack Brother Crohn disease Social History Housing: House Alcohol intake: current Alcohol intake frequency: holidays/special occasions only Patient Tobacco Use Status: Never used Tobacco Tobacco use type: Cigarette e-Cigarette/Vaping Use: Never Used Second Hand Smoke Exposure: No service: No Current occupational status: employed Cognitive needs: No Hearing needs: No Vision needs: No Review of Systems Const All systems reviewed & are unremarkable except as noted in HPI and below Endo Reports no additional complaints Physical Exam Const General: cooperative, healthy appearing and no acute distress Psych Appearance: well kempt Attitude: cooperative Thought process: Normal thought process present Telehealth Telehealth Telehealth [facility] Location of provider rendering services: practice address Location of patient: address on file Patient Identification confirmed using: Name, : Yes Telehealth method: video Patient verbally consented to treatment: Yes Patient verbally consented to billing insurance company: Yes Patient informed of any privacy concerns related to visit: Yes Results Reviewed Results Reviewed: Name: Veena Perez Age/Sex: 54/F Attending: Tonia Gillis CNM : 1970 Submitted by: Toina Gillis CNM Copies to: Shanta Medina PA-C MR #: [id number] Status: DEP REF Collected: 12/25/24 Location: [facility] Received: 12/26/24 Diagnosis A. Endometrium, biopsy: Superficial fragments of endometrium within normal limits; no atypia or hyperplasia identified. See comment. B. Cervix, polypectomy: Endocervical polyp; no atypia identified. Comment: The endometrial sampling is relatively sparse - a repeat may be warranted if the patient's irregular menses continue (as clinically appropriate). Clinical History Irregular menses, cervical polyp Microscopic Description A, B. Microscopic sections reviewed. Material Received A. Endometrial biopsy B. Cervical polyp Gross Description Received in 2 parts. A. Received in formalin labeled ?EMB? are fragments of red-mcknight soft tissue mixed with mucus and clotted blood forming in aggregate measuring 2.4 x 1.7 x 0.3 cm which is wrapped in lens paper and entirely submitted for microscopic examination, multiple pieces in cassette A. B. Received in formalin labeled ?cervical polyp? is a portion of rubbery, pink white tissue with adherent mucus measuring 3.2 x 1.5 x 0.8 cm. The outer surface is smooth and glistening. Sectioning reveals a homogeneous white cut surface. The specimen is trisected and entirely submitted for microscopic examination, 3 pieces in cassette B. ([facility]) Copies To Shanta Medina PA-C [address] [place] [address] Patient: Veena Perez [facility]: 54[id number] MR#: [id number] Page 1 of 2 Assessment & Plan Assessment & Plan (1) Encounter to discuss test results: Code(s): Z71.2 - Person consulting for explanation of examination or test findings Plan Discussed: Pathology findings- Diagnosis A. Endometrium, biopsy: Superficial fragments of endometrium within normal limits; no atypia or hyperplasia identified. See comment. B. Cervix, polypectomy: Endocervical polyp; no atypia identified. Comment: The endometrial sampling is relatively sparse - a repeat may be warranted if the patient's irregular menses continue (as clinically appropriate). Advised repeat if indicated for any further bleeding. Awaiting MRI authorization, hx. ovarian mass possible dermoid. Staff to check on status. Complete appropriate lab work. Follow up pending results. The patient expressed understanding and agreement with the plan of care. All of her questions and concerns were addressed to the best of my ability. This note is constructed using voice recognition software. While every effort has been made to ensure accuracy, insurance attorney errors may have been included. Orders: Orders Lactate Dehydrogenase Today N83.8 - Other noninflammatory disorders of ovary, fallopian tube and broad ligament Coding Level of Care Code Tele Est Pt Level 3 (86113) Diagnoses Encounter to discuss test results Z71.2
--- OUTSIDE RECORDS SUMMARY | 2025-01-08 12:40 | XMS_ITS | Clinical Summary ---
Author Organization [facility] Address [address] [place] [address] Care Team Providers Care [place] Adviser Name Role Phone Unavailable Primary Care Provider [...]
--- OUTSIDE RECORDS SUMMARY | 2025-01-08 12:40 | XMS_ITS | Patient Health Record ---
Author Organization [facility]anner [facility] Address [address] [place] [address] Care Team Providers Care System Safety Engineer Name Role Phone Adam Shanta Primary Care Provider Unavailab Katie Tarn Unavailable [phone] Allergies Allergen (clinical drug ingredient) Drug/Non Drug [...] Referring Provider Last Name Adam [facility] Referred Provider Katie Cast Referred Address [address] [facility] [place],[address], Referred Provider Specialty Podiatry Referral Priority Routine [...] Problem Acquired hammer toe of right foot (783351009466623 5) Other hammer toe(s) (acquired), right foot (M20.41) Active confirmed Problem Acquired hammer toe of left foot (572357486397918 3) Other hammer toe(s) (acquired), left foot (M20.42) Active confirmed Problem Type II diabetes mellitus without complication (708956625) Type 2 diabetes mellitus without complication (E11.9) Active confirmed Vital Signs Blood pressure diastolic 65 mm Hg 07/04/2024 Height 5 ft 3 in in 07/04/2024 Blood pressure systolic 130 mm Hg 07/04/2024 Weight 199 lbs 07/04/2024 BMI 35.25 kg/m2 07/04/2024 Procedures Procedure Date Ordered Date Performed Result Body Sit e 21793-YCTHGJC NAIL, 6 OR MORE 07/04/2024 N/A Encounters Encounter Location Date Provider Diagnosis [facility] [place] [address] [place] [address] 07/04/2024 Katie Cast Pain in right toe(s) [...] Treatment Pending Test Test Name Order Date [id number] NAIL, 6 OR MORE 07/04/2024 Next Appt Details Provider Name:Katie Sutton angela, 07/04/2025 09:00:00 AM, [address] [facility], [address], [place], [address], Insurance Providers Payer Name Payer Address Payer Phone Subscriber Number Group Number Insured Name Patient Relationship to Insured Coverage Start Date Coverage End Date [facility] [address] [place] [address] [id number] Veena Perez Self - patient is the insured Medical (General) History Medical History History ICD Code Anemia Back,Hip,and Knee pain type II diabetes High Blood Pressure Psoriasis/eczema Chicken pox Joint implants/screws Seasonal allergies Surgical History Surgery Date(Month/Year) knee re-alignment 2000 arthroscopic knee surgery 1999 Meniscus debridement 2018 excision of cyst on scalp 2x 2024
== END 2025-01-08 14:13 | disposition home or self-care (01) ==
LOC: HO.HWS 10:50
PROVIDERS: Visit Provider Advanced Practice Midwife
DX: N83.8 Other noninflammatory disorders of ovary, fallopian tube and broad ligament (principal); Z71.2 Person consulting for explanation of examination or test findings
CPT/HCPCS: 99213

== ENCOUNTER 2025-01-11 08:00 | Outpatient (REF) | payer BC, SELFPAY ==
--- OUTSIDE RECORDS SUMMARY | 2025-01-11 08:03 | XMS_ITS | Clinical Summary ---
Author Organization [facility] Address [address] [place] [address] Care Team Providers Care Recruiting Administrator Name Role Phone Unavailable Primary Care Provider [...]
--- OUTSIDE RECORDS SUMMARY | 2025-01-11 08:04 | XMS_ITS | Patient Health Record ---
Author Organization [facility]anner [facility] Address [address] [place] [address] Care Team Providers Care Opener Tender Name Role Phone Adam Shanta Primary Care Provider Unavailab Katie Tran Unavailable [phone] Allergies Allergen (clinical drug ingredient) Drug/Non Drug [...] Referring Provider Last Name Adam [facility] Referred Provider Katie Cast Referred Address [address] [facility] [place],[address], Referred Provider Specialty Podiatry Referral Priority Routine [...] Problem Acquired hammer toe of right foot (334761302171521 5) Other hammer toe(s) (acquired), right foot (M20.41) Active confirmed Problem Acquired hammer toe of left foot (757134279054301 3) Other hammer toe(s) (acquired), left foot (M20.42) Active confirmed Problem Type II diabetes mellitus without complication (776429602) Type 2 diabetes mellitus without complication (E11.9) Active confirmed Vital Signs Blood pressure diastolic 65 mm Hg 07/04/2024 Height 5 ft 3 in in 07/04/2024 Blood pressure systolic 130 mm Hg 07/04/2024 Weight 199 lbs 07/04/2024 BMI 35.25 kg/m2 07/04/2024 Procedures Procedure Date Ordered Date Performed Result Body Sit e [id number] NAIL, 6 OR MORE 07/04/2024 N/A Encounters Encounter Location Date Provider Diagnosis [facility] [place] [address] [place] [address] 07/04/2024 Katie Cast Pain in right toe(s) [...] Treatment Pending Test Test Name Order Date [id number] NAIL, 6 OR MORE 07/04/2024 Next Appt Details Provider Name:Katie Sutton angela, 07/04/2025 09:00:00 AM, [address] [facility], [address], [place], [address], Insurance Providers Payer Name Payer Address Payer Phone Subscriber Number Group Number Insured Name Patient Relationship to Insured Coverage Start Date Coverage End Date [facility] [address] [place] [address] [id number] Veena Perez Self - patient is the insured Medical (General) History Medical History History ICD Code Anemia Back,Hip,and Knee pain type II diabetes High Blood Pressure Psoriasis/eczema Chicken pox Joint implants/screws Seasonal allergies Surgical History Surgery Date(Month/Year) knee re-alignment 2000 arthroscopic knee surgery 1999 Meniscus debridement 2018 excision of cyst on scalp 2x 2024
== END 2025-01-11 08:01 | disposition home or self-care (01) ==
LOC: HO.LAB 08:00
PROVIDERS: Visit Provider Advanced Practice Midwife
DX: Z00.00 Encounter for general adult medical examination without abnormal findings (principal); N83.8 Other noninflammatory disorders of ovary, fallopian tube and broad ligament; E11.9 Type 2 diabetes mellitus without complications; Z13.21 Encounter for screening for nutritional disorder; Z13.29 Encounter for screening for other suspected endocrine disorder; E78.00 Pure hypercholesterolemia, unspecified; Z13.0 Encounter for screening for diseases of the blood and blood-forming organs and certain disorders involving the immune mechanism
CPT/HCPCS: 36415; 83615